=== PATIENT | female | born 1960 | race Caucasian/White ===

== ENCOUNTER 2020-06-01 14:43 | Inpatient (IN) | payer MEDICARE, OTHER ==
--- NOTE | 2020-06-01 15:14 | ED ---
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 Patient states she was diagnosed with Covid 10 days ago at [facility].patient states about 2 days ago she has developed a fev er 103F and was started on Tylenol when necessary. Patient also believes she was taken azithromycin but is not completely sure. Patient reports today she has developed some shortness of breath but did not think much of it. States the staff was more concerned for her so they called an ambulance to bring her for an evaluation. Patient does report feeling slightly wheezy although not significant. She denies any chest pain, back pain, abdominal pain, nausea, vomiting, diarrhea. Denies any URI-like symptoms. Denies any lightheadedness, dizzinessor headache.not a smoker nor history of asthma. - Related Data Allergies Allergy/AdvReac Type Severity Reaction Status Date / Time No Known Allergies Allergy Verified 06/01/20 14:56 Review of Systems ROS Statement: Those systems with pertinent positive or pertinent negative responses have been documented in the HPI. ROS Other: All systems not noted in ROS Statement are negative. Past Medical History Past Medical History: CVA/TIA Additional Past Medical History / Comment(s): brain aneursym History of Any Multi-Drug Resistant Organisms: MRSA Date of last positivie culture/infection: 06/18/16 MDRO Source:: SCALP Past Surgical History: No Surgical Hx Reported Past Psychological History: No Psychological Hx Reported Smoking Status: Former smoker Past Alcohol Use History: None Reported, Unable to Obtain General Exam Limitations: no limitations General appearance: alert, in no apparent distress, obese Head exam: Present: atraumatic, normocephalic, normal inspection Eye exam: Present: normal appearance, PERRL, EOMI Pupils: Present: normal accommodation ENT exam: Present: normal exam, normal oropharynx, mucous membranes moist, TM's normal bilaterally, normal external ear exam Neck exam: Present: normal inspection, full ROM Respiratory exam: Present: normal lung sounds bilaterally, wheezes (faint wheezing bilaterally). Absent: respiratory distress, chest wall tenderness, accessory muscle use Cardiovascular Exam: Present: regular rate, normal rhythm, normal heart sounds GI/Abdominal exam: Present: soft. Absent: distended, tenderness, guarding, rebound Extremities exam: Present: normal inspection, full ROM, normal capillary refill, other (palpable DP and PT bilaterally.). Absent: tenderness, joint swelling Back exam: Present: normal inspection, full ROM. Absent: tenderness, CVA tenderness (R), CVA tenderness (L) Neurological exam: Present: alert, oriented X3 Psychiatric exam: Present: normal affect, normal mood Skin exam: Present: warm, dry, intact, normal color Course Vital Signs 06/01/20 06/01/20 06/01/20 14:56 15:08 16:00 Temperature 98.8 F Pulse Rate 105 H 89 Respiratory 20 20 Rate Blood Pressure 118/83 137/57 O2 Sat by Pulse 85 L 90 L 90 L Oximetry 06/01/20 16:55 Temperature Pulse Rate 85 Respiratory 18 Rate Blood Pressure 131/59 O2 Sat by Pulse 95 Oximetry - Reevaluation(s) Reevaluation #1: 06/01/20 17:21 medical records reviewed Medical Decision Making - Medical Decision Making 60-year-old female with history of CVA and 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 On initial evaluation, patient has an oxygen saturation in the mid 80s on room air. Patient was started on 4 L of nasal cannula. Oxygen saturation improved to the mid 90s. CBC reveals leukocytosis of 13. Chest x-ray does reveal infiltrates. Coags within normal limits. Elevated d-dimer. CT angios the chest obtained reveals no signs of a PE but there is ground glass opacity bilaterally likely secondary to Covid.elevated BUN is 21. Patient was given 500 mL of IV fluids. Glucose 285. Patient will be started on a consistent carbohydrate diet. Elevated CRP and LDH.patient does not have any chest pain at this time. Patient will be admitted for further medical management.patient will be started on 6 mg of IV dexamethasone. 40 mg subcu Lovenox for DVT prophylaxis. Case discussed with Dr. Ley Admitting physician is pulmonology consulted - Lab Data Result diagrams: 06/01/20 15:06 06/01/20 15:06 Lab Results 02/08/1606/01/20 06/01/20 Range/Units 15:06 15:06 15:06 WBC 13.0 H (3.8-10.6) k/uL RBC 4.47 (3.80-5.40) m/uL Hgb 13.1 (11.4-16.0) gm/dL Hct 40.8 (34.0-46.0) % MCV 91.2 (80.0-100.0) fL MCH 29.4 (25.0-35.0) pg MCHC 32.2 (31.0-37.0) g/dL RDW 14.4 (11.5-15.5) % Plt Count 265 (150-450) k/uL MPV 8.8 Neutrophils % 94 % Lymphocytes % 3 % Monocytes % 2 % Eosinophils % 0 % Basophils % 0 % Neutrophils # 12.2 H (1.3-7.7) k/uL Lymphocytes # 0.4 L (1.0-4.8) k/uL Monocytes # 0.3 (0-1.0) k/uL Eosinophils # 0.0 (0-0.7) k/uL Basophils # 0.0 (0-0.2) k/uL PT 10.0 (9.0-12.0) sec INR 0.9 (<1.2) APTT 20.4 L (22.0-30.0) sec D-Dimer 1.07 H (<0.60) mg/L FEU Sodium 134 L (137-145) mmol/L Potassium 4.0 (3.5-5.1) mmol/L Chloride 103 (98-107) mmol/L Carbon Dioxide 24 (22-30) mmol/L Anion Gap 7 mmol/L BUN 21 H (7-17) mg/dL Creatinine 0.87 (0.52-1.04) mg/dL Est GFR (CKD-EPI)AfAm 85 (>60 ml/min/1.73 sqM) Est GFR (CKD-EPI)NonAf 74 (>60 ml/min/1.73 sqM) Glucose 278 H (74-99) mg/dL Plasma Lactic Acid Jono (0.7-2.0) mmol/L Calcium 8.2 L (8.4-10.2) mg/dL Magnesium 2.4 H (1.6-2.3) mg/dL Total Bilirubin 0.8 (0.2-1.3) mg/dL AST 38 H (14-36) U/L ALT 29 (4-34) U/L Alkaline Phosphatase 119 (38-126) U/L Lactate Dehydrogenase 849 H (313-618) U/L C-Reactive Protein 242.5 H (<10.0) mg/L Total Protein 7.0 (6.3-8.2) g/dL Albumin 3.4 L (3.5-5.0) g/dL 06/01/20 Range/Units 15:06 WBC (3.8-10.6) k/uL RBC (3.80-5.40) m/uL Hgb (11.4-16.0) gm/dL Hct (34.0-46.0) % MCV (80.0-100.0) fL MCH (25.0-35.0) pg MCHC (31.0-37.0) g/dL RDW (11.5-15.5) % Plt Count (150-450) k/uL MPV Neutrophils % % Lymphocytes % % Monocytes % % Eosinophils % % Basophils % % Neutrophils # (1.3-7.7) k/uL Lymphocytes # (1.0-4.8) k/uL Monocytes # (0-1.0) k/uL Eosinophils # (0-0.7) k/uL Basophils # (0-0.2) k/uL PT (9.0-12.0) sec INR (<1.2) APTT (22.0-30.0) sec D-Dimer (<0.60) mg/L FEU Sodium (137-145) mmol/L Potassium (3.5-5.1) mmol/L Chloride (98-107) mmol/L Carbon Dioxide (22-30) mmol/L Anion Gap mmol/L BUN (7-17) mg/dL Creatinine (0.52-1.04) mg/dL Est GFR (CKD-EPI)AfAm (>60 ml/min/1.73 sqM) Est GFR (CKD-EPI)NonAf (>60 ml/min/1.73 sqM) Glucose (74-99) mg/dL Plasma Lactic Acid Jono 2.0 (0.7-2.0) mmol/L Calcium (8.4-10.2) mg/dL Magnesium (1.6-2.3) mg/dL Total Bilirubin (0.2-1.3) mg/dL AST (14-36) U/L ALT (4-34) U/L Alkaline Phosphatase (38-126) U/L Lactate Dehydrogenase (313-618) U/L C-Reactive Protein (<10.0) mg/L Total Protein (6.3-8.2) g/dL Albumin (3.5-5.0) g/dL - EKG Data EKG Comments: sinus rhythm with short VA interval Ventricular rate 98, VA 110, QRS 86, QTC 428 Disposition Clinical Impression: Pneumonia due to COVID-19 virus, COVID-19 Disposition: ADMITTED IP TO THIS HOSP Condition: Stable Is patient prescribed a controlled substance at d/c from ED?: No Referrals: Basil Cunningham DO [Primary Care Provider] - 1-2 days Time of Disposition: 17:22
[2020-06-01 15:17] LABS: Basophils % (A) 0 %; Eosinophils % (A) 0 %; HCT 40.8 % (34.0-46.0); HGB 13.1 gm/dL (11.4-16.0); Lymphocytes # (A) 0.4 k/uL (1.0-4.8); Lymphocytes % (A) 3 %; MCH 29.4 pg (25.0-35.0); MCHC 32.2 g/dL (31.0-37.0); MCV 91.2 fL (80.0-100.0); Mean Platelet Volume 8.8; Monocytes # (A) 0.3 k/uL (0-1.0); Monocytes % (A) 2 %; Neutrophils # (A) 12.2 k/uL (1.3-7.7); Neutrophils % (A) 94 %; Platelet Count 265 k/uL (150-450); RBC 4.47 m/uL (3.80-5.40); RDW 14.4 % (11.5-15.5)
[2020-06-01 15:29] LABS: Albumin 3.4 g/dL (3.5-5.0); Calcium 8.2 mg/dL (8.4-10.2); Magnesium 2.4 mg/dL (1.6-2.3); Total Bilirubin 0.8 mg/dL (0.2-1.3)
[2020-06-01 15:43] LABS: INR 0.9 (<1.2)
[2020-06-01 15:44] LABS: Partial Thromboplastin Time 20.4 sec (22.0-30.0)
[2020-06-01 15:45] LABS: C Reactive Protein 242.5 mg/L (<10.0)
--- NOTE | 2020-06-01 15:46 | XR ---
EXAMINATION TYPE: XR chest 1V portable DATE OF EXAM: 06/01/2020 COMPARISON: NONE HISTORY: Cough and congestion. TECHNIQUE: Single AP portable frontal upright view of the chest is obtained. FINDINGS: There is background reticular nodular opacities with additional multifocal opacities bilat erally. Low lung volumes. No pleural effusion or pneumothorax. The cardiac silhouette size is within normal limits. The osseous structures are intact. IMPRESSION: Bilateral multifocal acute infiltrates suspicious for covid 19 infection. Low lung volum es noted. Old outside x-ray would be beneficial to assess for underlying chronic parenchymal changes.
[2020-06-01 15:53] LABS: D-Dimer 1.07 mg/L FEU (<0.60)
[2020-06-01] MEDS ORDERED: DEXAMETHASONE SOD PHOSPHATE 10 MG/ML 1 ML VIAL IV STA (15:54)
--- NOTE | 2020-06-01 16:57 | CT ---
EXAMINATION TYPE: CT chest angio for PE DATE OF EXAM: 06/01/2020 COMPARISON: None HISTORY: SOB, Covid+, elevated d-dimer CT DLP: 577.4 mGycm Automated exposure control for dose reduction was used. CONTRAST: Performed with IV Contrast, patient injected with 100 mL of Isovue 370. There are 3-D post processed images. FINDINGS: There is moderate patchy groundglass interstitial infiltrates in both lung sherman. There is no pulmon annika consolidation. There is no evidence of a pulmonary mass. There is large pericardial fat pad. Hear t size is normal. There is no pericardial effusion. There are no hilar masses. There is no mediastinal adenopathy. Thoracic aorta shows no aneurysm or di ssection. There is normal contrast opacification of the pulmonary arteries. There are no filling defects. The thoracic spine is intact. There is no compression fracture. Upper abdominal soft tissues are inta ct. IMPRESSION: No evidence of pulmonary embolism. Groundglass patchy pulmonary interstitial infiltrates consistent with pneumonia.
[2020-06-01] MEDS ORDERED: ENOXAPARIN 40 MG/0.4 ML SYRINGE SQ STA (17:17)
[2020-06-01] MEDS ORDERED: traMADol 50 MG TAB PO PRN (17:23)
[2020-06-01] MEDS ORDERED: MORPHINE SULFATE 4 MG/ML SYRINGE IV PRN (17:23)
[2020-06-01] MEDS ORDERED: ACETAMINOPHEN TAB 325 MG TAB PO PRN ×2 (17:23→21:28)
[2020-06-01] MEDS ORDERED: LORazepam 2 MG/ML INJ IV PRN (17:23)
[2020-06-01] MEDS ORDERED: ONDANSETRON 4 MG/2 ML VIAL IVP PRN (17:23)
[2020-06-01] MEDS ORDERED: HYDROmorphone 0.5 MG/0.5 ML SYRINGE IVP PRN (17:23)
[2020-06-01] MEDS ORDERED: NALOXONE 0.4 MG/ML 1 ML VIAL IV PRN (17:23)
[2020-06-01] MEDS ORDERED: HYDROcodone/APAP 5-325MG 1 EACH TAB PO PRN (17:23)
[2020-06-01] MEDS ORDERED: LOPERAMIDE 2 MG CAP PO PRN (21:28)
[2020-06-01] MEDS ORDERED: ONDANSETRON ODT 4 MG TAB PO PRN (21:28)
[2020-06-01] MEDS ORDERED: MAGNESIUM HYDROXIDE 2,400 MG/10 ML CUP PO PRN (21:28)
[2020-06-01] MEDS ORDERED: bisacodyL 10 MG SUPP RECTAL PRN (21:28)
[2020-06-01] MEDS ORDERED: NON FORMULARY DRUG (Menthol [Biofreeze] 89 ML Gel..Ml.) TOPICAL PRN (21:28)
[2020-06-01] MEDS: SODIUM CHLORIDE 0.9% 1,000 ML IV SCH (22:39)
[2020-06-01] MEDS: MORPHINE SULFATE ER 15 MG TABLET PO SCH (23:13)
[2020-06-01] MEDS: guaiFENesin 600 MG TABLET.ER PO SCH (23:13)
[2020-06-01] MEDS: levETIRAcetam 500 MG TAB PO SCH (23:13)
[2020-06-01] MEDS: MELATONIN 3 MG TABLET PO SCH (23:14)
[2020-06-01] MEDS: BACLOFEN 10 MG TAB PO SCH (23:14)
[2020-06-02 06:37] LABS: Ferritin 440.6 ng/mL (10.0-291.0)
[2020-06-02] MEDS: SODIUM CHLORIDE 0.9% 1,000 ML IV SCH ×2 (06:52→20:58)
[2020-06-02] MEDS: CYANOCOBALAMIN 500 MCG TAB PO SCH (07:49)
[2020-06-02] MEDS: lisinopriL 10 MG TAB PO SCH (07:49)
[2020-06-02] MEDS: MULTIVITAMINS, THERA 1 EACH TAB PO SCH (07:49)
[2020-06-02] MEDS: DULoxetine HCL 20 MG CAPSULE.DR PO SCH (07:49)
[2020-06-02] MEDS: levETIRAcetam 500 MG TAB PO SCH ×2 (07:49→21:22)
[2020-06-02] MEDS: ASCORBIC ACID 500 MG TAB PO SCH (07:49)
[2020-06-02] MEDS: guaiFENesin 600 MG TABLET.ER PO SCH ×2 (07:49→21:22)
[2020-06-02] MEDS: ZINC SULFATE 220 MG CAP PO SCH (07:49)
[2020-06-02] MEDS: CHOLECALCIFEROL 25 MCG (1000 IU) TABLET PO SCH (07:49)
[2020-06-02] MEDS: MORPHINE SULFATE ER 15 MG TABLET PO SCH ×2 (07:50→21:21)
[2020-06-02] MEDS ORDERED: IPRATROPIUM-ALBUTEROL 3 ML NEB INHALATION SCH (08:00)
[2020-06-02] MEDS: DEXAMETHASONE SOD PHOSPHATE 10 MG/ML 1 ML VIAL IV SCH (08:53)
[2020-06-02] MEDS ORDERED: DEXAMETHASONE SOD PHOSPHATE 10 MG/ML 1 ML VIAL IV SCH (09:00)
[2020-06-02] MEDS ORDERED: NA PHOS,M-B/NA PHOS,DI-BA 133 ML ENEMA RECTAL PRN (09:00)
--- NOTE | 2020-06-02 13:26 | P.CNPUL ---
History of Present Illness Consult date: 06/02/20 Requesting physician: Marcelo Chaves Reason for consult: dyspnea, cough, hypoxemia, pneumonia, abnormal CXR/CT Chief complaint: Shortness of breath. History of present illness: 60-year-old female, with a history of previous stroke, a couple years ago, and left-sided paralysis, who resides at [facility], presents with complaints of increasing shortness of breath, cough, chest tightness, and fever. She apparently was diagnosed as having COVID 19 infection 10 days ago. She tells us that many residents at the [facility] test positive for coronavirus infection. Because of the high fever, and the increasing shortness of breath, the staff at the [facility] called EMS who transported the patient into the hospital to be evaluated. After evaluation in the emergency room, it was determined that the patient should be admitted for COVID 19 pneumonitis, and acute hypoxemic respiratory failure. The patient was started on oxygen therapy, and albuterol inhaler, Decadron, vitamin C, vitamin D3, zinc, etc. 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 Labs include a white count of 13, hemoglobin 13.1, hematocrit of 40.8, platelet count 265,000. PT and INR were normal. PTT was 20.4, d-dimer was 1.07. Sodium was 134, potassium 4, chlorides 103, CO2 24, anion gap 7, BUN 21, and creatinine 0.87. Ferritin was 441, AST was 38, LDH was 849, C-reactive protein was 243. Her calcitonin level was 0.59. Chest x-ray and computed tomography scan, are consistent with COVID 19 pneumonia. Review of Systems REVIEW OF SYSTEMS: CONSTITUTIONAL: Fever NEUROLOGIC: [ Negative.] HEENT: [ Negative.] CARDIAC: [Negative.] PULMONARY: Shortness of breath, chest congestion, chest tightness, and cough GI: [Negative.] : [Negative.] RHEUMATOLOGIC: [ Negative.] IMMUNOLOGIC: [ Negative.] ENDOCRINE: [Negative. ] DERMATOLOGIC: [Negative.] Past Medical History Past Medical History: CVA/TIA Additional Past Medical History / Comment(s): brain aneursym History of Any Multi-Drug Resistant Organisms: MRSA Date of last positivie culture/infection: 2/21/17 MDRO Source:: SCALP Past Surgical History: Hysterectomy Additional Past Anesthesia/Blood Transfusion Reaction / Comment(s): too sleepy Past Psychological History: No Psychological Hx Reported Smoking Status: Former smoker Past Alcohol Use History: None Reported, Unable to Obtain Past Drug Use History: None Reported Medications and Allergies Home Medications Medication Instructions Recorded Confirmed Type Acetaminophen Tab [Tylenol] 650 mg PO Q4H PRN 06/01/20 06/01/20 History Albuterol Sulfate [Ventolin HFA] 2 puff INHALATION RT-Q4H PRN 06/01/20 06/01/20 History Ascorbic Acid [Vitamin C] 1,000 mg PO DAILY@79906/01/20 06/01/20 History Baclofen 10 mg PO HS@199906/01/20 06/01/20 History Cholecalciferol [Vitamin D3 (25 50 mcg PO DAILY@79906/01/20 06/01/20 History Mcg = 1000 Iu)] DULoxetine HCL [Cymbalta] 20 mg PO DAILY@79906/01/20 06/01/20 History Ipratropium-Albuterol Nebulize 3 ml INHALATION RT-TID 06/01/20 06/01/20 History [Duoneb 0.5 mg-3 mg/3 ml Soln] Levofloxacin [Levaquin] 500 mg PO DAILY@169906/01/20 06/01/20 History Loperamide HCl [Imodium A-D] 2 - 4 mg PO TID PRN MDD 4TABS 06/01/20 06/01/20 History Magnesium Hydroxide [Milk of 7,200 mg PO DAILY PRN 06/01/20 06/01/20 History Magnesia Concentrate] Melatonin 3 mg PO HS@209906/01/20 06/01/20 History Menthol [Biofreeze] 1 applic TOPICAL DAILY PRN 06/01/20 06/01/20 History Morphine Sulfate [Morphine Sulfate 15 mg PO BID@799,199906/01/20 06/01/20 His tory ER] Multivitamins, Thera [Multivitamin 1 tab PO DAILY@79906/01/20 06/01/20 History (formulary)] Na Phos,M-B/Na Phos,Di-Ba [Fleet 133 ml RECTAL DAILY PRN 06/01/20 06/01/20 History Adult] Ondansetron Odt [Zofran ODT] 4 mg PO Q8H PRN 06/01/20 06/01/20 History Vitamin B-12 250 Mcg 250 mcg PO DAILY@0800 06/01/20 06/01/20 History Zinc Sulfate 220 mg PO DAILY@0800 06/01/20 06/01/20 History bisacodyL [Dulcolax] 10 mg RECTAL DAILY PRN 06/01/20 06/01/20 History guaiFENesin [Mucinex] 600 mg PO BID@0800,209906/01/20 06/01/20 History levETIRAcetam [Keppra] 500 mg PO BID@0800,199906/01/20 06/01/20 History lisinopriL [Zestril] 10 mg PO DAILY@0800 06/01/20 06/01/20 History Allergies Allergy/AdvReac Type Severity Reaction Status Date / Time No Known Allergies Allergy Verified 06/01/20 17:36 Physical Exam Osteopathic Statement: *. No significant issues noted on an osteopathic structural exam other than those noted in the History and Physical/Consult. Vitals: Vital Signs Temp Pulse Pulse Resp BP BP Pulse Ox 06/02/20 12:08 97.8 F 66 16 115/70 90 L 06/02/20 05:32 98.7 F 70 19 119/68 92 L 06/02/20 02:05 98.8 F 85 17 119/66 91 L 06/01/20 21:55 98.6 F 76 16 153/72 91 L 06/01/20 20:40 76 16 06/01/20 20:10 98.6 F 86 20 140/64 94 L 06/01/20 19:15 84 18 146/86 93 L 06/01/20 18:00 84 20 139/54 92 L 06/01/20 16:55 85 18 131/59 95 06/01/20 16:00 89 20 137/57 90 L 06/01/20 15:08 90 L 06/01/20 14:56 98.8 F 105 H 20 118/83 85 L Intake and Output 06/01/20 06/02/20 06/02/20 22:59 06:59 14:59 Other: # Voids 0 0 Weight 116.573 kg No acute distress, oriented 3. Nasal O2 in place. HEENT examination is grossly unremarkable. Mucous membranes are moist. No oral lesions. Neck supple. Full range of motion. No adenopathy thyromegaly or neck vein distention. Cardiovascular examination reveals regular rhythm rate. S1-S2 normal. No S3 or S4. No discernible murmur noted. Heart rate 66 bpm. Lungs reveal diminished bilateral breath sounds. The patient does not take deep breaths. No distinct adventitious lung sounds were noted. Abdomen soft bowel sounds are heard. No masses or tenderness. Extremities are intact. No cyanosis clubbing or edema. Skin is without rash or lesion. Neurologic examination reveals left-sided weakness with flexion contracture of the left hand. Results - Laboratory Findings CBC and BMP: 06/01/20 15:06 06/01/20 15:06 PT/INR, D-dimer PT 10.0 sec (9.0-12.0) 06/01/20 15:06 INR 0.9 (<1.2) 06/01/20 15:06 D-Dimer 1.07 mg/L FEU (<0.60) H 06/01/20 15:06 Abnormal lab findings: Abnormal Labs 06/01/20 06/01/20 06/01/20 15:06 15:06 15:06 WBC 13.0 H Neutrophils # 12.2 H Lymphocytes # 0.4 L APTT 20.4 L D-Dimer 1.07 H Sodium 134 L BUN 21 H Glucose 278 H Calcium 8.2 L Magnesium 2.4 H Ferritin 440.6 H AST 38 H Lactate Dehydrogenase 849 H C-Reactive Protein 242.5 H Albumin 3.4 L Procalcitonin 06/01/20 15:06 WBC Neutrophils # Lymphocytes # APTT D-Dimer Sodium BUN Glucose Calcium Magnesium Ferritin AST Lactate Dehydrogenase C-Reactive Protein Albumin Procalcitonin 0.59 H - Diagnostic Findings Chest x-ray: image reviewed CT scan - chest: image reviewed Assessment and Plan Assessment: COVID 19 pneumonia/pneumonitis, with acute hypoxemic respiratory failure. History of ruptured aneurysm, with left-sided weakness/paralysis. History of hypertension. Obesity. Plan: Plan dated 06/01/2020. The patient is beyond the remdesivir window. She is treated with vitamin C, vitamin D3, and zinc. In addition, she is getting Decadron, 6 mg daily. Also, we provide her with an albuterol inhaler. Also, she is on oxygen therapy at 4 L. Saturations are in the low 90s. Recommend deep breathing, coughing, clearing secretions. In addition, we recommend there is positions including vergara pine, prone, right side down, and left side down. This is difficult for her because of her left-sided paralysis/weakness. Also, she is on Mucinex. Also, she was placed on Levaquin by her primary care provider. Additional recommendations and suggestions are forthcoming. We'll continue to follow and make recommendations where appropriate. Time with Patient: Greater than 30
[2020-06-02] MEDS: ALBUTEROL HFA INHALER INHALATION PRN ×2 (15:38→19:57)
[2020-06-02] MEDS: LEVOFLOXACIN 500 MG TAB PO SCH (17:30)
[2020-06-02] MEDS: BACLOFEN 10 MG TAB PO SCH (21:21)
[2020-06-02] MEDS: MELATONIN 3 MG TABLET PO SCH (21:22)
--- NOTE | 2020-06-02 21:30 | P.HPIM ---
History of Present Illness H&P Date: 06/02/20 Chief Complaint: Fever History of presenting complaint: This is a pleasant 60-year-old patient follows a Dr. Cunningham at the [facility]. Blood the EMS report: They've informed by the [facility] that that for several days patient has been needing increasing amount of supplemental oxygen. Patient's pulse ox and dropped down to 83% on a nonrebreather 5 L/m. Apparently patient was diagnosed with COVID 19/10 days ago. Started off with fever about 2 days ago. She has a cough. Slightly congested. Appetite is okay. No headaches. Some body aches. Chronic stable medical conditions include hypertension, seizure disorder, GERD, chronic pain, hyperlipidemia. Patient has left hemiparesis. History of brain aneurysm repair. Has no use of the left arm. Some movement of the left leg. Otherwise patient is able to communicate. Review of systems: GEN.: Fever] EYES: None HEENT: None NECK: None RESPIRATORY: As above CARDIOVASCULAR: None GASTROINTESTINAL: None GENITOURINARY: Patient doesn't a brief MUSCULOSKELETAL: None LYMPHATICS: None HEMATOLOGICAL: None PSYCHIATRY: None NEUROLOGICAL: Flaccid left arm and some weakness of the left leg Past medical history to include: Left hemiparesis, hypertension, epilepsy, GERD, chronic pain syndrome, hyperlipidemia,, vein aneurysm repair. Left arm flaccid and some weakness in the left leg. Social history: Did smoke in the past. No alcohol. Currently at the [facility]. Family history: Reviewed, noncontributory to presentation Physical examination: VITAL SIGNS: 98.8, 105, 20, 108/83, 85% on room air-upon presentation GENERAL: BMI 50.2, laying in bed, awake a bit tired. EYES: Pupils equal. Conjunctiva normal. HEENT: External appearance of nose and ears normal, oral cavity grossly normal. NECK: JVD not raised; masses not palpable. HEART: First and second heart sounds are normal; no edema. LUNGS:[ Respiratory rate increased, diminished breath sounds. ABDOMEN: Soft, nontender, liver spleen not palpable, no masses palpable. PSYCH: Alert and oriented x3; mood and affect normal. NEUROLOGICAL: [Cranial nerves grossly intact; no facial asymmetry, power in the left arm 0/5, left leg 2/5 LYMPHATICS: No lymph nodes palpable in the axilla and neck INVESTIGATIONS, reviewed in the clinical context: White count 13 hemoglobin 13.1 platelets 265 decreased lymphocytes at 0.4 d- dimer 1.07 sodium 134 potassium 4 creatinine 0.87 glucose 278 CRP to 42 pro calcitonin 0.59 EKG tracing personally reviewed by me-normal sinus rhythm Chest [id number] infiltrates Computed tomography scan chest angina for PE protocol: No evidence of PE. Groundglass patchy pulmonary interstitial infiltrates. Assessment and plan: -Bilateral COVID 19 pneumonia diagnosed about 10 days ago. Patient developed a fever 2 days ago. Associated hypoxia. Patient started IV Decadron, supplements including zinc, vitamin C, vitamin D being added. -Possible gram-negative secondary pneumonia-Levaquin added -Acute hypoxic respiratory failure from pneumonia-supplement oxygen, currently on 4 L -Chronic left hemiparesis with a flaccid left arm and particularly left lower extremity 2 x 5. -Essential hypertension-continue Zestril -Epilepsy disorder-continue Keppra -GERD stable -Chronic insomnia uses melatonin -Chronic pain syndrome continue on morphine sulfate -Morbid obesity BMI 50.2 -Chronic medical debility patient is pretty much nonambulatory Plan: Home medications resumed. Patient started on vitamin D3, IV Decadron 6 mg, Levaquin has been continued, pulmonary consulted. Follow d-dimer and CRP. Care was discussed with the patient. Questions answered. Expectation admin Hospital for more than 2 overnights. Past Medical History Past Medical History: CVA/TIA Additional Past Medical History / Comment(s): brain aneursym History of Any Multi-Drug Resistant Organisms: MRSA Date of last positivie culture/infection: 06/18/16 MDRO Source:: SCALP Past Surgical History: Hysterectomy Additional Past Anesthesia/Blood Transfusion Reaction / Comment(s): too sleepy Past Psychological History: No Psychological Hx Reported Smoking Status: Former smoker Past Alcohol Use History: None Reported, Unable to Obtain Past Drug Use History: None Reported Medications and Allergies Home Medications Medication Instructions Recorded Confirmed Type Acetaminophen Tab [Tylenol] 650 mg PO Q4H PRN 06/01/20 06/01/20 History Albuterol Sulfate [Ventolin HFA] 2 puff INHALATION RT-Q4H PRN 06/01/20 06/01/20 History Ascorbic Acid [Vitamin C] 1,000 mg PO DAILY@0800 06/01/20 06/01/20 History Baclofen 10 mg PO HS@199906/01/20 06/01/20 History Cholecalciferol [Vitamin D3 (25 50 mcg PO DAILY@0800 06/01/20 06/01/20 History Mcg = 1000 Iu)] DULoxetine HCL [Cymbalta] 20 mg PO DAILY@0800 06/01/20 06/01/20 History Ipratropium-Albuterol Nebulize 3 ml INHALATION RT-TID 06/01/20 06/01/20 History [Duoneb 0.5 mg-3 mg/3 ml Soln] Levofloxacin [Levaquin] 500 mg PO DAILY@17006/01/20 06/01/20 History Loperamide HCl [Imodium A-D] 2 - 4 mg PO TID PRN MDD 4TABS 06/01/20 06/01/20 History Magnesium Hydroxide [Milk of 7,200 mg PO DAILY PRN 06/01/20 06/01/20 History Magnesia Concentrate] Melatonin 3 mg PO HS@209906/01/20 06/01/20 History Menthol [Biofreeze] 1 applic TOPICAL DAILY PRN 06/01/20 06/01/20 History Morphine Sulfate [Morphine Sulfate 15 mg PO BID@0800,199906/01/20 06/01/20 H istory ER] Multivitamins, Thera [Multivitamin 1 tab PO DAILY@0806/01/20 06/01/20 History (formulary)] Na Phos,M-B/Na Phos,Di-Ba [Fleet 133 ml RECTAL DAILY PRN 06/01/20 06/01/20 History Adult] Ondansetron Odt [Zofran ODT] 4 mg PO Q8H PRN 06/01/20 06/01/20 History Vitamin B-12 250 Mcg 250 mcg PO DAILY@0800 06/01/20 06/01/20 History Zinc Sulfate 220 mg PO DAILY@0806/01/20 06/01/20 History bisacodyL [Dulcolax] 10 mg RECTAL DAILY PRN 06/01/20 06/01/20 History guaiFENesin [Mucinex] 600 mg PO BID@0800,209906/01/20 06/01/20 History levETIRAcetam [Keppra] 500 mg PO BID@0800,199906/01/20 06/01/20 History lisinopriL [Zestril] 10 mg PO DAILY@0800 06/01/20 06/01/20 History Allergies Allergy/AdvReac Type Severity Reaction Status Date / Time No Known Allergies Allergy Verified 06/01/20 17:36 Physical Exam Vitals: Vital Signs Temp Pulse Pulse Resp BP BP Pulse Ox 06/02/20 05:32 98.7 F 70 19 119/68 92 L 06/02/20 02:05 98.8 F 85 17 119/66 91 L 06/01/20 21:55 98.6 F 76 16 153/72 91 L 06/01/20 20:40 76 16 06/01/20 20:10 98.6 F 86 20 140/64 94 L 06/01/20 19:15 84 18 146/86 93 L 06/01/20 18:00 84 20 139/54 92 L 06/01/20 16:55 85 18 131/59 95 06/01/20 16:00 89 20 137/57 90 L 06/01/20 15:08 90 L 06/01/20 14:56 98.8 F 105 H 20 118/83 85 L Intake and Output 06/01/20 06/02/20 06/02/20 22:59 06:59 14:59 Other: # Voids 0 Weight 116.573 kg Results CBC & Chem 7: 06/01/20 15:06 06/01/20 15:06 Labs: Abnormal Lab Results - Last 24 Hours (Table) 06/01/20 06/01/20 06/01/20 Range/Units 15:06 15:06 15:06 WBC 13.0 H (3.8-10.6) k/uL Neutrophils # 12.2 H (1.3-7.7) k/uL Lymphocytes # 0.4 L (1.0-4.8) k/uL APTT 20.4 L (22.0-30.0) sec D-Dimer 1.07 H (<0.60) mg/L FEU Sodium 134 L (137-145) mmol/L BUN 21 H (7-17) mg/dL Glucose 278 H (74-99) mg/dL Calcium 8.2 L (8.4-10.2) mg/dL Magnesium 2.4 H (1.6-2.3) mg/dL Ferritin 440.6 H (10.0-291.0) ng/mL AST 38 H (14-36) U/L Lactate Dehydrogenase 849 H (313-618) U/L C-Reactive Protein 242.5 H (<10.0) mg/L Albumin 3.4 L (3.5-5.0) g/dL Procalcitonin (0.02-0.09) ng/mL 06/01/20 Range/Units 15:06 WBC (3.8-10.6) k/uL Neutrophils # (1.3-7.7) k/uL Lymphocytes # (1.0-4.8) k/uL APTT (22.0-30.0) sec D-Dimer (<0.60) mg/L FEU Sodium (137-145) mmol/L BUN (7-17) mg/dL Glucose (74-99) mg/dL Calcium (8.4-10.2) mg/dL Magnesium (1.6-2.3) mg/dL Ferritin (10.0-291.0) ng/mL AST (14-36) U/L Lactate Dehydrogenase (313-618) U/L C-Reactive Protein (<10.0) mg/L Albumin (3.5-5.0) g/dL Procalcitonin 0.59 H (0.02-0.09) ng/mL Thrombosis Risk Factor Assmnt - Choose All That Apply Each Factor Represents 1 point: Age 41-60 years, Medical pt on bed rest, Obesity (BMI >25), Swollen legs (current) Thrombosis Risk Factor Assessment Total Risk Factor Score: 4 Thrombosis Risk Factor Assessment Level: Moderate Risk
[2020-06-02] MEDS ORDERED: VANCOMYCIN IV PER PHARMACY 1 EACH MISC MISCELLANE PRN (21:31)
[2020-06-02] MEDS ORDERED: VANCOMYCIN 2,000 MG in SODIUM CHLORIDE 0.9% 500 ML 500 ML IVPB ONE (22:30)
[2020-06-03 06:54] LABS: Glucose,Whole Blood 162 mg/dL (75-99)
[2020-06-03 07:52] LABS: African American GFR (CKD) >90 (>60 ml/min/1.73 sqM); Non-African American GFR(CKD) >90 (>60 ml/min/1.73 sqM)
[2020-06-03] MEDS: ALBUTEROL HFA INHALER INHALATION PRN ×4 (08:30→19:42)
[2020-06-03] MEDS: ASCORBIC ACID 500 MG TAB PO SCH (08:41)
[2020-06-03] MEDS: MULTIVITAMINS, THERA 1 EACH TAB PO SCH (08:41)
[2020-06-03] MEDS: guaiFENesin 600 MG TABLET.ER PO SCH ×2 (08:42→20:12)
[2020-06-03] MEDS: CYANOCOBALAMIN 500 MCG TAB PO SCH (08:42)
[2020-06-03] MEDS: CHOLECALCIFEROL 25 MCG (1000 IU) TABLET PO SCH (08:42)
[2020-06-03] MEDS: levETIRAcetam 500 MG TAB PO SCH ×2 (08:42→16:27)
[2020-06-03] MEDS: ZINC SULFATE 220 MG CAP PO SCH (08:42)
[2020-06-03] MEDS: MORPHINE SULFATE ER 15 MG TABLET PO SCH ×2 (08:42→20:13)
[2020-06-03] MEDS: lisinopriL 10 MG TAB PO SCH (08:42)
[2020-06-03] MEDS: DULoxetine HCL 20 MG CAPSULE.DR PO SCH (08:42)
[2020-06-03] MEDS: DEXAMETHASONE SOD PHOSPHATE 10 MG/ML 1 ML VIAL IV SCH (08:43)
[2020-06-03] MEDS: SODIUM CHLORIDE 0.9% 1,000 ML IV SCH ×2 (08:43→21:32)
--- NOTE | 2020-06-03 13:33 | P.PN ---
Subjective Progress Note Date: 06/03/20 Principal diagnosis: CoVID 19 pneumonia 60-year-old female, with a history of previous stroke, a couple years ago, and left-sided paralysis, who resides at [facility], presents with complaints of increasing shortness of breath, cough, chest tightness, and fever. She apparently was diagnosed as having COVID 19 infection 10 days ago. She tells us that many residents at the [facility] test positive for coronavirus infection. Because of the high fever, and the increasing shortness of breath, the staff at the [facility] called EMS who transported the patient into the hospital to be evaluated. After evaluation in the emergency room, it was determined that the patient should be admitted for COVID 19 pneumonitis, and acute hypoxemic respiratory failure. The patient was started on oxygen therapy, and albuterol inhaler, Decadron, vitamin C, vitamin D3, zinc, etc. 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 Labs include a white count of 13, hemoglobin 13.1, hematocrit of 40.8, platelet count 265,000. PT and INR were normal. PTT was 20.4, d-dimer was 1.07. Sodium was 134, potassium 4, chlorides 103, CO2 24, anion gap 7, BUN 21, and creatinine 0.87. Ferritin was 441, AST was 38, LDH was 849, C-reactive protein was 243. Her calcitonin level was 0.59. Chest x-ray and computed tomography scan, are consistent with COVID 19 pneumonia. The patient is seen today 06/03/2020 in follow-up on the regular medical floor. She is resting comfortably in bed. Awake and alert in no acute distress. She denies any worsening shortness of breath, cough or congestion. Maintaining O2 saturations in the high 80s low 90s on 5 L/m per nasal cannula. She's afebrile. Hemodynamically stable. Preliminary blood culture reveals coag-negative staph. Creatinine 0.69. She's been initiated on vancomycin. Continued on bronchodilators, vitamin supplements, Decadron, Levaquin. Objective - Vital Signs Vital signs: Vital Signs Temp 97.5 F L 06/03/20 09:31 Pulse 67 06/03/20 09:31 Resp 17 06/03/20 09:31 BP 124/75 06/03/20 09:31 Pulse Ox 88 L 06/03/20 09:31 Intake & Output 06/02/20 06/03/20 06/03/20 18:59 06:59 18:59 Intake Total 900 1600 Balance 900 1600 Intake: Intake, IV Titration 1400 Amount Sodium Chloride 0.9% 1, 900 000 ml @ 75 mls/hr IV . [id number] [facility] Rx#:[id number] Vancomycin 2,000 mg In 500 Sodium Chloride 0.9% 500 ml 500 ml @ 167 mls/hr IVPB ONCE ONE Rx#: [id number] Oral 900 200 Other: # Voids 0 1 - Exam No acute distress, oriented 3. Pleasant 52-year-old female patient. Nasal O2 in place. HEENT examination is grossly unremarkable. Mucous membranes are moist. No oral lesions. Neck supple. Full range of motion. No adenopathy thyromegaly or neck vein distention. Cardiovascular examination reveals regular rhythm rate. S1-S2 normal. No S3 or S4. No discernible murmur noted. Heart rate 66 bpm. Lungs reveal diminished bilateral breath sounds. The patient does not take deep breaths. No distinct adventitious lung sounds were noted. Abdomen soft bowel sounds are heard. No masses or tenderness. Extremities are intact. No cyanosis clubbing or edema. Skin is without rash or lesion. Neurologic examination reveals left-sided weakness with flexion contracture of the left hand. - Labs CBC & Chem 7: 06/01/20 15:06 06/03/20 07:25 Labs: Abnormal Lab Results - Last 24 Hours (Table) 06/03/20 Range/Units 06:51 POC Glucose (mg/dL) 162 H (75-99) mg/dL Microbiology - Last 24 Hours (Table) 06/01/20 15:22 Blood Culture Gram Stain - Preliminary Blood Blood Culture - Preliminary Coagulase Negative Staph 06/01/20 15:22 Blood Culture - Final Blood 06/01/20 15:06 Blood Culture - Preliminary Blood No Growth after 24 hours Assessment and Plan Assessment: COVID 19 pneumonia/pneumonitis, with acute hypoxemic respiratory failure. History of ruptured aneurysm, with left-sided weakness/paralysis. History of hypertension. Obesity. Coag negative bacteremia, suspect contaminant Plan: The patient was seen and evaluated by Dr. Verdugo Continue the current treatment plan for CoVID 19 Hold off on anticoagulants for now Repeat inflammatory markers and chest x-ray in a.m. Plan is for return to [facility] I, the cosigning physician, performed a history & physical examination of the p atient. Lungs sounds with crackles in the bilateral posterior bases. Maintaining good O2 saturations in the 90s on 5 L/m per nasal cannula. I discussed the assessment and plan of care with my nurse practitioner, Dali Toledo. I attest to the above note as dictated by her.
[2020-06-03] MEDS: ENOXAPARIN 40 MG/0.4 ML SYRINGE SQ SCH ×3 (16:27→20:15)
[2020-06-03] MEDS: LEVOFLOXACIN 500 MG TAB PO SCH (16:48)
[2020-06-03] MEDS: BACLOFEN 10 MG TAB PO SCH (20:12)
[2020-06-03] MEDS: MELATONIN 3 MG TABLET PO SCH (20:13)
[2020-06-03 20:42] LABS: Glucose,Whole Blood 221 mg/dL (75-99)
--- NOTE | 2020-06-03 22:48 | P.PN ---
Progress Note - Text Progress Note Date: 06/03/20 Chief Complaint: Fever History of presenting complaint: This is a pleasant 60-year-old patient follows a Dr. Cunningham at the [facility]. Blood the EMS report: They've informed by the [facility] that that for several days patient has been needing increasing amount of supplemental oxygen. Patient's pulse ox and dropped down to 83% on a nonrebreather 5 L/m. Apparently patient was diagnosed with COVID 19/10 days ago. Started off with fever about 2 days ago. She has a cough. Slightly congested. Appetite is okay. No headaches. Some body aches. Chronic stable medical conditions include hypertension, seizure disorder, GERD, chronic pain, hyperlipidemia. Patient has left hemiparesis. History of brain aneurysm repair. Has no use of the left arm. Some movement of the left leg. Otherwise patient is able to communicate. Admitted with COVID 19 bilateral pneumonia, superimposed suspected gram-negative bacteria pneumonia, acute hypoxic respiratory failure. Patient started on Decadron, vitamin C vitamin D zinc supplement. Today-patient's pulse ox is 88% on 5 L. A bit congested. Eating about 75% of abuse. Cough. No fever Review of systems: Was done for constitutional, cardiovascular, GI, pulmonary. relevant finding as above Active Medications Acetaminophen (Acetaminophen Tab 325 Mg Tab) 650 mg PO Q4H PRN PRN Reason: Pain Hydrocodone Bitart/Acetaminophen (Hydrocodone/Apap 5-325mg 1 Each Tab) 1 each PO Q4HR PRN PRN Reason: Moderate Pain Albuterol Sulfate (Albuterol Hfa Inhaler) 2 puff INHALATION RT-Q4H PRN PRN Reason: Shortness Of Breath Last Admin: 06/03/20 19:42 Dose: 2 puff Documented by: Ascorbic Acid (Ascorbic Acid 500 Mg Tab) 1,000 mg PO DAILY@0800 [facility] Last Admin: 06/03/20 08:41 Dose: 1,000 mg Documented by: Baclofen (Baclofen 10 Mg Tab) 10 mg PO HS@2000 [facility] Last Admin: 06/03/20 20:12 Dose: 10 mg Documented by: Bisacodyl (Bisacodyl 10 Mg Supp) 10 mg RECTAL DAILY PRN PRN Reason: Constipation Cholecalciferol (Cholecalciferol 25 Mcg (1000 Iu) Tablet) 50 mcg PO DAILY@0800 [facility] Last Admin: 06/03/20 08:42 Dose: 50 mcg Documented by: Cyanocobalamin (Cyanocobalamin 500 Mcg Tab) 250 mcg PO DAILY@0800 [facility] Last Admin: 06/03/20 08:42 Dose: 250 mcg Documented by: Dexamethasone Sodium Phosphate (Dexamethasone Sod Phosphate 10 Mg/Ml 1 Ml Vial) 6 mg IV DAILY [facility] Last Admin: 06/03/20 08:43 Dose: 6 mg Documented by: Duloxetine HCl (Duloxetine Hcl 20 Mg Capsule.Dr) 20 mg PO DAILY@0800 [facility] Last Admin: 06/03/20 08:42 Dose: 20 mg Documented by: Enoxaparin Sodium (Enoxaparin 40 Mg/0.4 Ml Syringe) 40 mg SQ BID [facility] Last Admin: 06/03/20 20:15 Dose: Not Given Documented by: Guaifenesin (Guaifenesin 600 Mg Tablet.Er) 600 mg PO BID@0800,2100 [facility] Last Admin: 06/03/20 20:12 Dose: 600 mg Documented by: Hydromorphone HCl (Hydromorphone 0.5 Mg/0.5 Ml Syringe) 0.5 mg IVP Q3HR PRN PRN Reason: Moderate Pain Sodium Chloride (Saline 0.9%) 1,000 mls @ 75 mls/hr IV .[id number] [facility] Last Admin: 06/03/20 21:32 Dose: Not Given Documented by: Vancomycin HCl 2,250 mg/ (Sodium Chloride) 500 mls @ 167 mls/hr IVPB Q24H [facility] Last Admin: 06/03/20 22:14 Dose: 167 mls/hr Documented by: Levetiracetam (Levetiracetam 500 Mg Tab) 500 mg PO BID@0800,2000 [facility] Last Admin: 06/03/20 16:27 Dose: 500 mg Documented by: Levofloxacin (Levofloxacin 500 Mg Tab) 500 mg PO DAILY@1700 [facility] Last Admin: 06/03/20 16:48 Dose: 500 mg Documented by: Lisinopril (Lisinopril 10 Mg Tab) 10 mg PO DAILY@0800 [facility] Last Admin: 06/03/20 08:42 Dose: 10 mg Documented by: Loperamide HCl (Loperamide 2 Mg Cap) 2 mg PO TID PRN PRN Reason: Diarrhea Lorazepam (Lorazepam 2 Mg/Ml Inj) 0.5 mg IV Q6HR PRN PRN Reason: Anxiety Magnesium Hydroxide (Magnesium Hydroxide 2,400 Mg/10 Ml Cup) 2,400 mg PO DAILY PRN PRN Reason: Constipation Melatonin (Melatonin 3 Mg Tablet) 3 mg PO HS@2100 [facility] Last Admin: 06/03/20 20:13 Dose: 3 mg Documented by: Morphine Sulfate (Morphine Sulfate 4 Mg/Ml Syringe) 4 mg IV Q4HR PRN PRN Reason: Severe Pain Morphine Sulfate (Morphine Sulfate Er 15 Mg Tablet) 15 mg PO BID@0800,1999 [facility]; Protocol Last Admin: 06/03/20 20:13 Dose: 15 mg Documented by: Multivitamins (Multivitamins, Thera 1 Each Tab) 1 each PO DAILY@0800 [facility] Last Admin: 06/03/20 08:41 Dose: 1 each Documented by: Naloxone HCl (Naloxone 0.4 Mg/Ml 1 Ml Vial) 0.2 mg IV Q2M PRN PRN Reason: Opioid Reversal Ondansetron HCl (Ondansetron 4 Mg/2 Ml Vial) 4 mg IVP Q8HR PRN PRN Reason: Nausea And Vomiting Ondansetron HCl (Ondansetron Odt 4 Mg Tab) 4 mg PO Q8H PRN PRN Reason: Nausea Sodium Biphosphate/Sodium Phosphate (Na Phos,M-B/Na Phos,Di-Ba 133 Ml Enema) 133 ml RECTAL DAILY PRN PRN Reason: Constipation Tramadol HCl (Tramadol 50 Mg Tab) 50 mg PO Q6H PRN PRN Reason: Moderate Pain Zinc Sulfate (Zinc Sulfate 220 Mg Cap) 220 mg PO DAILY@0800 [facility] Last Admin: 06/03/20 08:42 Dose: 220 mg Documented by: Past medical history to include: Left hemiparesis, hypertension, epilepsy, GERD, chronic pain syndrome, hyperlipidemia,, vein aneurysm repair. Left arm flaccid and some weakness in the left leg. Social history: Did smoke in the past. No alcohol. Currently at the [facility]. Family history: Reviewed, noncontributory to presentation Physical examination: VITAL SIGNS: 97.5, 67, 17, 124/75, 88% on 5 L GENERAL: laying in bed, awake PSYCH: Alert and oriented x3; mood and affect normal. NEUROLOGICAL: [Cranial nerves grossly intact; no facial asymmetry, left-sided weakness Rest of the exam as per pulmonary and nursing INVESTIGATIONS, reviewed in the clinical context: June 13: D-dimer 0.60 CRP 59.4 White count 13 hemoglobin 13.1 platelets 265 decreased lymphocytes at 0.4 d- dimer 1.07 sodium 134 potassium 4 creatinine 0.87 glucose 278 CRP to 42 pro calcitonin 0.59 EKG tracing personally reviewed by me-normal sinus rhythm Chest [id number] infiltrates Computed tomography scan chest angina for PE protocol: No evidence of PE. Groundglass patchy pulmonary interstitial infiltrates. Blood culture positive for coagulase-negative staph-contaminated Assessment and plan: -Bilateral COVID 19 pneumonia diagnosed about 10 days ago. Patient developed a fever 2 days ago. Associated hypoxia. Patient started IV Decadron, supplements including zinc, vitamin C, vitamin D being added. -Possible gram-negative secondary pneumonia-Levaquin added -Acute hypoxic respiratory failure from pneumonia-supplement oxygen, worsening on 5 L of oxygen. -Chronic left hemiparesis with a flaccid left arm and particularly left lower extremity 2 x 5. -Essential hypertension-continue Zestril -Epilepsy disorder-continue Keppra -GERD stable -Chronic insomnia uses melatonin -Chronic pain syndrome continue on morphine sulfate -Morbid obesity BMI 50.2 -Chronic medical debility patient is pretty much nonambulatory -Contaminated blood culture. DC vancomycin Plan: Continue vitamin D3, IV Decadron 6 mg, Levaquin has been continued, spoke to the nurse to have the patient set up. His incentive spirometry every 10 minutes as instructed. Lovenox subcu.
[2020-06-03] MEDS ORDERED: VANCOMYCIN 2,250 MG in SODIUM CHLORIDE 0.9% 500 ML 500 ML IVPB SCH (23:00)
--- NOTE | 2020-06-04 07:28 | XR ---
EXAMINATION TYPE: XR chest 1V portable DATE OF EXAM: 06/04/2020 HISTORY: Shortness of breath. COMPARISON: June 01, 2020 TECHNIQUE: Single view of the chest is submitted. FINDINGS: Demonstrated are scattered senescent parenchymal change. Bilateral scattered airspace infiltrates persist unchanged. The heart is stable. Hilar and mediastinal structures are within normal limits. Degenerative changes are seen of the dorsal spine. IMPRESSION: 1. Bilateral scattered airspace infiltrates persist unchanged.
[2020-06-04] MEDS: ALBUTEROL HFA INHALER INHALATION PRN ×4 (07:30→18:49)
[2020-06-04] MEDS: guaiFENesin 600 MG TABLET.ER PO SCH ×2 (08:12→21:13)
[2020-06-04] MEDS: MULTIVITAMINS, THERA 1 EACH TAB PO SCH (08:12)
[2020-06-04] MEDS: ZINC SULFATE 220 MG CAP PO SCH (08:12)
[2020-06-04] MEDS: levETIRAcetam 500 MG TAB PO SCH ×2 (08:12→21:12)
[2020-06-04] MEDS: CHOLECALCIFEROL 25 MCG (1000 IU) TABLET PO SCH (08:12)
[2020-06-04] MEDS: DULoxetine HCL 20 MG CAPSULE.DR PO SCH (08:12)
[2020-06-04] MEDS: MORPHINE SULFATE ER 15 MG TABLET PO SCH ×2 (08:12→21:12)
[2020-06-04] MEDS: lisinopriL 10 MG TAB PO SCH (08:12)
[2020-06-04] MEDS: CYANOCOBALAMIN 500 MCG TAB PO SCH (08:12)
[2020-06-04] MEDS: ENOXAPARIN 40 MG/0.4 ML SYRINGE SQ SCH ×2 (08:13→21:14)
[2020-06-04] MEDS: DEXAMETHASONE SOD PHOSPHATE 10 MG/ML 1 ML VIAL IV SCH (08:13)
[2020-06-04] MEDS: ASCORBIC ACID 500 MG TAB PO SCH (08:13)
[2020-06-04 11:10] LABS: African American GFR (CKD) 110.7 (60.0-200.0); C Reactive Protein 3.8 mg/dL (0.0-0.8); Non-African American GFR(CKD) 95.5 (60.0-200.0)
--- NOTE | 2020-06-04 13:14 | P.PN ---
Subjective Progress Note Date: 06/04/20 Principal diagnosis: CoVID 19 pneumonia 60-year-old female, with a history of previous stroke, a couple years ago, and left-sided paralysis, who resides at [facility], presents with complaints of increasing shortness of breath, cough, chest tightness, and fever. She apparently was diagnosed as having COVID 19 infection 10 days ago. She tells us that many residents at the [facility] test positive for coronavirus infection. Because of the high fever, and the increasing shortness of breath, the staff at the [facility] called EMS who transported the patient into the hospital to be evaluated. After evaluation in the emergency room, it was determined that the patient should be admitted for COVID 19 pneumonitis, and acute hypoxemic respiratory failure. The patient was started on oxygen therapy, and albuterol inhaler, Decadron, vitamin C, vitamin D3, zinc, etc. 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 Labs include a white count of 13, hemoglobin 13.1, hematocrit of 40.8, platelet count 265,000. PT and INR were normal. PTT was 20.4, d-dimer was 1.07. Sodium was 134, potassium 4, chlorides 103, CO2 24, anion gap 7, BUN 21, and creatinine 0.87. Ferritin was 441, AST was 38, LDH was 849, C-reactive protein was 243. Her calcitonin level was 0.59. Chest x-ray and computed tomography scan, are consistent with COVID 19 pneumonia. The patient is seen today 06/03/2020 in follow-up on the regular medical floor. She is resting comfortably in bed. Awake and alert in no acute distress. She denies any worsening shortness of breath, cough or congestion. Maintaining O2 saturations in the high 80s low 90s on 5 L/m per nasal cannula. She's afebrile. Hemodynamically stable. Preliminary blood culture reveals coag-negative staph. Creatinine 0.69. She's been initiated on vancomycin. Continued on bronchodilators, vitamin supplements, Decadron, Levaquin. The patient is seen today 06/04/2020 in follow-up on the regular medical floor. She is currently resting comfortably in bed. Awake and alert in no acute distress. Maintaining O2 saturations in the low 90s on 4 L/m per nasal cannula. She's been afebrile. Hemodynamically stable. D-dimer 0.88. Creatinine 0.7. LDH 328. C-reactive protein 3.8. Remains on Decadron, Lovenox, vitamin suppl ements. Objective - Vital Signs Vital signs: Vital Signs Temp 98.1 F 06/04/20 10:02 Pulse 67 06/04/20 10:02 Resp 18 06/04/20 10:02 BP 128/76 06/04/20 10:02 Pulse Ox 90 L 06/04/20 10:02 Intake & Output 06/03/20 06/04/20 06/04/20 18:59 06:59 18:59 Intake Total 100 Balance 100 Intake: Oral 100 Other: # Voids 2 1 - Exam No acute distress, oriented 3. Pleasant 52-year-old female patient. On 4 L nasal cannula. HEENT examination is grossly unremarkable. Mucous membranes are moist. No oral lesions. Neck supple. Full range of motion. No adenopathy thyromegaly or neck vein distention. Cardiovascular examination reveals regular rhythm rate. S1-S2 normal. No S3 or S4. No discernible murmur noted. Heart rate 66 bpm. Lungs reveal diminished bilateral breath sounds. The patient does not take deep breaths. No distinct adventitious lung sounds were noted. Abdomen soft bowel sounds are heard. No masses or tenderness. Extremities are intact. No cyanosis clubbing or edema. Skin is without rash or lesion. Neurologic examination reveals left-sided weakness with flexion contracture of the left hand. - Labs CBC & Chem 7: 06/01/20 15:06 06/04/20 05:48 Labs: Abnormal Lab Results - Last 24 Hours (Table) 06/03/20 06/03/20 06/03/20 Range/Units 16:00 16:00 20:41 D-Dimer 0.60 H (<0.60) mg/L FEU POC Glucose (mg/dL) 221 H (75-99) mg/dL Lactate Dehydrogenase (120-246) U/L C-Reactive Protein 59.4 H (<10.0) mg/L 06/04/20 06/04/20 Range/Units 05:48 05:48 D-Dimer 0.88 H (<0.60) mg/L FEU POC Glucose (mg/dL) (75-99) mg/dL Lactate Dehydrogenase 328 H (120-246) U/L C-Reactive Protein 3.8 H (<10.0) mg/L Microbiology - Last 24 Hours (Table) 06/01/20 15:06 Blood Culture - Preliminary Blood No Growth after 48 hours Assessment and Plan Assessment: COVID 19 pneumonia/pneumonitis, with acute hypoxemic respiratory failure. History of ruptured aneurysm, with left-sided weakness/paralysis. History of hypertension. Obesity. Coag negative bacteremia, suspect contaminant Plan: The patient was seen and evaluated by Dr. Verdugo Continue the current treatment plan for CoVID 19 Titrate down the FiO2 as tolerated Plan is for return to [facility] I, the cosigning physician, performed a history & physical examination of the patient. Lungs sounds with crackles in the bilateral posterior bases. Maintaining good O2 saturations in the 90s on 4 L/m per nasal cannula. I discussed the assessment and plan of care with my nurse practitioner, Dali Toledo. I attest to the above note as dictated by her.
[2020-06-04] MEDS: LEVOFLOXACIN 500 MG TAB PO SCH (17:14)
--- NOTE | 2020-06-04 20:21 | P.PN ---
Progress Note - Text Progress Note Date: 06/04/20 Chief Complaint: Fever History of presenting complaint: This is a pleasant 60-year-old patient follows a Dr. Cunningham at the [facility]. Blood the EMS report: They've informed by the [facility] that that for several days patient has been needing increasing amount of supplemental oxygen. Patient's pulse ox and dropped down to 83% on a nonrebreather 5 L/m. Apparently patient was diagnosed with COVID 19/10 days ago. Started off with fever about 2 days ago. She has a cough. Slightly congested. Appetite is okay. No headaches. Some body aches. Chronic stable medical conditions include hypertension, seizure disorder, GERD, chronic pain, hyperlipidemia. Patient has left hemiparesis. History of brain aneurysm repair. Has no use of the left arm. Some movement of the left leg. Otherwise patient is able to communicate. Admitted with COVID 19 bilateral pneumonia, superimposed suspected gram-negative bacteria pneumonia, acute hypoxic respiratory failure. Patient started on Decadron, vitamin C vitamin D zinc supplement. Today-laying in bed. Short of breath. Slight cough. Oral intake fair. Review of systems: Was done for constitutional, cardiovascular, GI, pulmonary. relevant finding as above Active Medications Acetaminophen (Acetaminophen Tab 325 Mg Tab) 650 mg PO Q4H PRN PRN Reason: Pain Hydrocodone Bitart/Acetaminophen (Hydrocodone/Apap 5-325mg 1 Each Tab) 1 each PO Q4HR PRN PRN Reason: Moderate Pain Albuterol Sulfate (Albuterol Hfa Inhaler) 2 puff INHALATION RT-Q4H PRN PRN Reason: Shortness Of Breath Last Admin: 06/04/20 18:49 Dose: 2 puff Documented by: Ascorbic Acid (Ascorbic Acid 500 Mg Tab) 1,000 mg PO DAILY@0800 [facility] Last Admin: 06/04/20 08:13 Dose: 1,000 mg Documented by: Baclofen (Baclofen 10 Mg Tab) 10 mg PO HS@2000 [facility] Last Admin: 06/03/20 20:12 Dose: 10 mg Documented by: Bisacodyl (Bisacodyl 10 Mg Supp) 10 mg RECTAL DAILY PRN PRN Reason: Constipation Cholecalciferol (Cholecalciferol 25 Mcg (1000 Iu) Tablet) 50 mcg PO DAILY@0800 [facility] Last Admin: 06/04/20 08:12 Dose: 50 mcg Documented by: Cyanocobalamin (Cyanocobalamin 500 Mcg Tab) 250 mcg PO DAILY@0800 [facility] Last Admin: 06/04/20 08:12 Dose: 250 mcg Documented by: Dexamethasone Sodium Phosphate (Dexamethasone Sod Phosphate 10 Mg/Ml 1 Ml Vial) 6 mg IV DAILY [facility] Last Admin: 06/04/20 08:13 Dose: 6 mg Documented by: Duloxetine HCl (Duloxetine Hcl 20 Mg Capsule.Dr) 20 mg PO DAILY@0800 [facility] Last Admin: 06/04/20 08:12 Dose: 20 mg Documented by: Enoxaparin Sodium (Enoxaparin 40 Mg/0.4 Ml Syringe) 40 mg SQ BID [facility] Last Admin: 06/04/20 08:13 Dose: Not Given Documented by: Guaifenesin (Guaifenesin 600 Mg Tablet.Er) 600 mg PO BID@0800,2100 [facility] Last Admin: 06/04/20 08:12 Dose: 600 mg Documented by: Hydromorphone HCl (Hydromorphone 0.5 Mg/0.5 Ml Syringe) 0.5 mg IVP Q3HR PRN PRN Reason: Moderate Pain Levetiracetam (Levetiracetam 500 Mg Tab) 500 mg PO BID@0800,2000 [facility] Last Admin: 06/04/20 08:12 Dose: 500 mg Documented by: Levofloxacin (Levofloxacin 500 Mg Tab) 500 mg PO DAILY@1700 [facility] Last Admin: 06/04/20 17:14 Dose: 500 mg Documented by: Lisinopril (Lisinopril 10 Mg Tab) 10 mg PO DAILY@0800 [facility] Last Admin: 06/04/20 08:12 Dose: 10 mg Documented by: Loperamide HCl (Loperamide 2 Mg Cap) 2 mg PO TID PRN PRN Reason: Diarrhea Lorazepam (Lorazepam 2 Mg/Ml Inj) 0.5 mg IV Q6HR PRN PRN Reason: Anxiety Magnesium Hydroxide (Magnesium Hydroxide 2,400 Mg/10 Ml Cup) 2,400 mg PO DAILY PRN PRN Reason: Constipation Melatonin (Melatonin 3 Mg Tablet) 3 mg PO HS@2100 [facility] Last Admin: 06/03/20 20:13 Dose: 3 mg Documented by: Morphine Sulfate (Morphine Sulfate 4 Mg/Ml Syringe) 4 mg IV Q4HR PRN PRN Reason: Severe Pain Morphine Sulfate (Morphine Sulfate Er 15 Mg Tablet) 15 mg PO BID@0800,1999 [facility]; Protocol Last Admin: 06/04/20 08:12 Dose: 15 mg Documented by: Multivitamins (Multivitamins, Thera 1 Each Tab) 1 each PO DAILY@08 [facility] Last Admin: 06/04/20 08:12 Dose: 1 each Documented by: Naloxone HCl (Naloxone 0.4 Mg/Ml 1 Ml Vial) 0.2 mg IV Q2M PRN PRN Reason: Opioid Reversal Ondansetron HCl (Ondansetron 4 Mg/2 Ml Vial) 4 mg IVP Q8HR PRN PRN Reason: Nausea And Vomiting Ondansetron HCl (Ondansetron Odt 4 Mg Tab) 4 mg PO Q8H PRN PRN Reason: Nausea Sodium Biphosphate/Sodium Phosphate (Na Phos,M-B/Na Phos,Di-Ba 133 Ml Enema) 133 ml RECTAL DAILY PRN PRN Reason: Constipation Tramadol HCl (Tramadol 50 Mg Tab) 50 mg PO Q6H PRN PRN Reason: Moderate Pain Zinc Sulfate (Zinc Sulfate 220 Mg Cap) 220 mg PO DAILY@08 [facility] Last Admin: 06/04/20 08:12 Dose: 220 mg Documented by: Past medical history to include: Left hemiparesis, hypertension, epilepsy, GERD, chronic pain syndrome, hyperlipidemia,, vein aneurysm repair. Left arm flaccid and some weakness in the left leg. Social history: Did smoke in the past. No alcohol. Currently at the [facility]. Family history: Reviewed, noncontributory to presentation Physical examination: VITAL SIGNS: 98.1, 67, 18, 128 x 76, 90% on 4 L GENERAL: laying in bed, awake PSYCH: Alert and oriented x3; mood and affect normal. NEUROLOGICAL: [Cranial nerves grossly intact; no facial asymmetry, left-sided weakness Rest of the exam as per pulmonary and nursing INVESTIGATIONS, reviewed in the clinical context: June 04: D-dimer 0.88 CRP 3.8 June 03: D-dimer 0.60 CRP 59.4 White count 13 hemoglobin 13.1 platelets 265 decreased lymphocytes at 0.4 d- dimer 1.07 sodium 134 potassium 4 creatinine 0.87 glucose 278 CRP to 42 pro calcitonin 0.59 EKG tracing personally reviewed by me-normal sinus rhythm Chest [id number] infiltrates Computed tomography scan chest angina for PE protocol: No evidence of PE. Groundglass patchy pulmonary interstitial infiltrates. Blood culture positive for coagulase-negative staph-contaminated Assessment and plan: -Bilateral COVID 19 pneumonia diagnosed about 10 days ago. Patient developed a fever 2 days ago. Associated hypoxia. Patient started IV Decadron, supplements including zinc, vitamin C, vitamin D being added. -Possible gram-negative secondary pneumonia-Levaquin added -Acute hypoxic respiratory failure from pneumonia-supplement oxygen, slow to respond on 4 L of oxygen. -Chronic left hemiparesis with a flaccid left arm and particularly left lower extremity 2 x 5. -Essential hypertension-continue Zestril -Epilepsy disorder-continue Keppra -GERD stable -Chronic insomnia uses melatonin -Chronic pain syndrome continue on morphine sulfate -Morbid obesity BMI 50.2 -Chronic medical debility patient is pretty much nonambulatory -Contaminated blood culture. DC vancomycin Plan: Continue vitamin D3, IV Decadron 6 mg, Levaquin . Patient has not been using the incentive spirometry. Reminded. Patient pulse ox is only 90% on 4 L. Follow closely with pulmonary.
[2020-06-04] MEDS: BACLOFEN 10 MG TAB PO SCH (21:12)
[2020-06-04] MEDS: MELATONIN 3 MG TABLET PO SCH (21:13)
[2020-06-05 06:18] LABS: African American GFR (CKD) >90 (>60 ml/min/1.73 sqM); C Reactive Protein 24.3 mg/L (<10.0); Non-African American GFR(CKD) >90 (>60 ml/min/1.73 sqM)
[2020-06-05] MEDS: CHOLECALCIFEROL 25 MCG (1000 IU) TABLET PO SCH (07:20)
[2020-06-05] MEDS: ZINC SULFATE 220 MG CAP PO SCH (07:20)
[2020-06-05] MEDS: MORPHINE SULFATE ER 15 MG TABLET PO SCH ×2 (07:21→19:35)
[2020-06-05] MEDS: CYANOCOBALAMIN 500 MCG TAB PO SCH (07:21)
[2020-06-05] MEDS: MULTIVITAMINS, THERA 1 EACH TAB PO SCH (07:21)
[2020-06-05] MEDS: guaiFENesin 600 MG TABLET.ER PO SCH ×2 (07:22→19:36)
[2020-06-05] MEDS: ASCORBIC ACID 500 MG TAB PO SCH (07:22)
[2020-06-05] MEDS: lisinopriL 10 MG TAB PO SCH (07:22)
[2020-06-05] MEDS: DULoxetine HCL 20 MG CAPSULE.DR PO SCH (07:23)
[2020-06-05] MEDS: ENOXAPARIN 40 MG/0.4 ML SYRINGE SQ SCH ×2 (07:23→19:36)
[2020-06-05] MEDS: DEXAMETHASONE SOD PHOSPHATE 10 MG/ML 1 ML VIAL IV SCH ×2 (07:24→23:01)
[2020-06-05] MEDS: levETIRAcetam 500 MG TAB PO SCH ×2 (08:15→19:35)
[2020-06-05] MEDS: ALBUTEROL HFA INHALER INHALATION PRN ×2 (08:22→11:33)
--- NOTE | 2020-06-05 14:38 | P.PN ---
Subjective Progress Note Date: 06/05/20 60-year-old female, with a history of previous stroke, a couple years ago, and left-sided paralysis, who resides at [facility], presents with complaints of increasing shortness of breath, cough, chest tightness, and fever. She apparently was diagnosed as having COVID 19 infection 10 days ago. She tells us that many residents at the [facility] test positive for coronavirus infection. Because of the high fever, and the increasing shortness of breath, the staff at the [facility] called EMS who transported the patient into the hospital to be evaluated. After evaluation in the emergency room, it was determined that the patient should be admitted for COVID 19 pneumonitis, and acute hypoxemic respiratory failure. The patient was started on oxygen therapy, and albuterol inhaler, Decadron, vitamin C, vitamin D3, zinc, etc. 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 Labs include a white count of 13, hemoglobin 13.1, hematocrit of 40.8, platelet count 265,000. PT and INR were normal. PTT was 20.4, d-dimer was 1.07. Sodium was 134, potassium 4, chlorides 103, CO2 24, anion gap 7, BUN 21, and creatinine 0.87. Ferritin was 441, AST was 38, LDH was 849, C-reactive protein was 243. Her calcitonin level was 0.59. Chest x-ray and computed tomography scan, are consistent with COVID 19 pne umonia. The patient is seen today 06/03/2020 in follow-up on the regular medical floor. She is resting comfortably in bed. Awake and alert in no acute distress. She denies any worsening shortness of breath, cough or congestion. Maintaining O2 saturations in the high 80s low 90s on 5 L/m per nasal cannula. She's afebrile. Hemodynamically stable. Preliminary blood culture reveals coag-negative staph. Creatinine 0.69. She's been initiated on vancomycin. Continued on bronchodilators, vitamin supplements, Decadron, Levaquin. The patient is seen today 06/04/2020 in follow-up on the regular medical floor. She is currently resting comfortably in bed. Awake and alert in no acute distress. Maintaining O2 saturations in the low 90s on 4 L/m per nasal cannula. She's been afebrile. Hemodynamically stable. D-dimer 0.88. Creatinine 0.7. LDH 328. C-reactive protein 3.8. Remains on Decadron, Lovenox, vitamin supplements. On 06/05/2020 patient seen in follow-up on medical surgical floor. She is calm and comfortable, she is currently on 4 L of oxygen her pulse ox is between 90-9 6%, she continues on Decadron 6 mg daily, C, vitamin D3 and zinc. Patient was beyond the window for Remdesivir, her breathing is comfortable, signs have been stable, there has been no worsening in her respiratory status, patient is essentially bedbound related to her history of CVA and left-sided weakness. Her chest x-ray yesterday showed bilateral scattered airspace infiltrates unchanged. D-dimer was 0.60, undetermined are improving. Is on Levaquin for empiric antibiotic coverage in view of elevated pro calcitonin. Objective - Vital Signs Vital signs: Vital Signs Temp 97.8 F 06/05/20 10:00 Pulse 62 06/05/20 10:00 Resp 18 06/05/20 10:00 BP 134/82 06/05/20 10:00 Pulse Ox 90 L 06/05/20 10:00 Intake & Output 06/04/20 06/05/20 06/05/20 18:59 06:59 18:59 Other: # Voids 4 3 - Exam GENERAL EXAM: Alert, active, very pleasant, 52-year-old white female, on 4 L of oxygen a pulse ox of 90%, comfortable in no apparent distress. HEAD: Normocephalic/atraumatic. EYES: Normal reaction of pupils, equal size. Conjunctiva pink, sclera white. NOSE: Clear with pink turbinates. THROAT: No erythema or exudates. NECK: No masses, no JVD, no thyroid enlargement, no adenopathy. CHEST: No chest wall deformity. Symmetrical expansion. LUNGS: Equal air entry with no crackles, wheeze, rhonchi or dullness. CVS: Regular rate and rhythm, normal S1 and S2, no gallops, no murmurs, no rubs ABDOMEN: Soft, nontender. No hepatosplenomegaly, normal bowel sounds, no guarding or rigidity. EXTREMITIES: No clubbing, no edema, no cyanosis, 2+ pulses and upper and lower extremities. MUSCULOSKELETAL: Muscle strength and tone normal. SPINE: No scoliosis or deformity SKIN: No rashes CENTRAL NERVOUS SYSTEM: Alert and oriented -3. Left-sided weakness, and chronic contracture of left hand PSYCHIATRIC: Alert and oriented -3. Appropriate affect. Intact judgment and i nsight. - Labs CBC & Chem 7: 06/01/20 15:06 06/05/20 05:32 Labs: Abnormal Lab Results - Last 24 Hours (Table) 06/05/20 06/05/20 Range/Units 05:32 05:32 D-Dimer 4.16 H (<0.60) mg/L FEU C-Reactive Protein 24.3 H (<10.0) mg/L Microbiology - Last 24 Hours (Table) 06/01/20 15:22 Blood Culture Gram Stain - Final Blood Blood Culture - Final Coagulase Negative Staph 06/01/20 15:06 Blood Culture - Preliminary Blood No Growth after 72 hours Assessment and Plan Plan: Assessment: COVID 19 pneumonia/pneumonitis, with acute hypoxemic respiratory failure. History of ruptured aneurysm, with left-sided weakness/paralysis. History of hypertension. Obesity. Coag negative bacteremia, suspect contaminant, culture coagulase negative staph Plan: Current medical treatment, continue current dose Decadron, wean FiO2, pain follow-up on calcitonin, vital signs have been stable, breathing comfortably, vital signs are stable, we'll obtain follow-up chest x-ray tomorrow if it remains the same or stable and patient continues to be stable may consider for possible discharge back to the [facility] tomorrow I performed a history & physical examination of the patient and discussed their management with my nurse practitioner, Roma Lopez. I reviewed the nurse practitioner's note and agree with the documented findings and plan of care. Lung sounds are positive for diminished breath sounds. The findings and the impression was discussed with the patient. I attest to the documentation by the nurse practitioner. Time with Patient: Less than 30
[2020-06-05] MEDS: LEVOFLOXACIN 500 MG TAB PO SCH (16:31)
[2020-06-05] MEDS: BACLOFEN 10 MG TAB PO SCH (19:34)
[2020-06-05] MEDS: MELATONIN 3 MG TABLET PO SCH (19:36)
--- NOTE | 2020-06-05 22:16 | P.PN ---
Progress Note - Text Progress Note Date: 06/05/20 Chief Complaint: Fever History of presenting complaint: This is a pleasant 60-year-old patient follows a Dr. Cunningham at the [facility]. Blood the EMS report: They've informed by the [facility] that that for several days patient has been needing increasing amount of supplemental oxygen. Patient's pulse ox and dropped down to 83% on a nonrebreather 5 L/m. Apparently patient was diagnosed with COVID 19/10 days ago. Started off with fever about 2 days ago. She has a cough. Slightly congested. Appetite is okay. No headaches. Some body aches. Chronic stable medical conditions include hypertension, seizure disorder, GERD, chronic pain, hyperlipidemia. Patient has left hemiparesis. History of brain aneurysm repair. Has no use of the left arm. Some movement of the left leg. Otherwise patient is able to communicate. Admitted with COVID 19 bilateral pneumonia, superimposed suspected gram-negative bacteria pneumonia, acute hypoxic respiratory failure. Patient started on Decadron, vitamin C vitamin D zinc supplement. Today-laying in bed. Slight cough. Slight shortness of breath. Oral intake over 75% to loss of taste or smell. Review of systems: Was done for constitutional, cardiovascular, GI, pulmonary. relevant finding as above Active Medications Acetaminophen (Acetaminophen Tab 325 Mg Tab) 650 mg PO Q4H PRN PRN Reason: Pain Hydrocodone Bitart/Acetaminophen (Hydrocodone/Apap 5-325mg 1 Each Tab) 1 each PO Q4HR PRN PRN Reason: Moderate Pain Albuterol Sulfate (Albuterol Hfa Inhaler) 2 puff INHALATION RT-Q4H PRN PRN Reason: Shortness Of Breath Last Admin: 06/05/20 11:33 Dose: 2 puff Documented by: Ascorbic Acid (Ascorbic Acid 500 Mg Tab) 1,000 mg PO DAILY@0800 [facility] Last Admin: 06/05/20 07:22 Dose: 1,000 mg Documented by: Baclofen (Baclofen 10 Mg Tab) 10 mg PO HS@2000 [facility] Last Admin: 06/05/20 19:34 Dose: 10 mg Documented by: Bisacodyl (Bisacodyl 10 Mg Supp) 10 mg RECTAL DAILY PRN PRN Reason: Constipation Cholecalciferol (Cholecalciferol 25 Mcg (1000 Iu) Tablet) 50 mcg PO DAILY@0800 [facility] Last Admin: 06/05/20 07:20 Dose: 50 mcg Documented by: Cyanocobalamin (Cyanocobalamin 500 Mcg Tab) 250 mcg PO DAILY@0800 [facility] Last Admin: 06/05/20 07:21 Dose: 250 mcg Documented by: Dexamethasone Sodium Phosphate (Dexamethasone Sod Phosphate 10 Mg/Ml 1 Ml Vial) 6 mg IV DAILY [facility] Last Admin: 06/05/20 07:24 Dose: 6 mg Documented by: Duloxetine HCl (Duloxetine Hcl 20 Mg Capsule.Dr) 20 mg PO DAILY@0800 [facility] Last Admin: 06/05/20 07:23 Dose: 20 mg Documented by: Enoxaparin Sodium (Enoxaparin 40 Mg/0.4 Ml Syringe) 40 mg SQ BID [facility] Last Admin: 06/05/20 19:36 Dose: 40 mg Documented by: Guaifenesin (Guaifenesin 600 Mg Tablet.Er) 600 mg PO BID@0800,2100 [facility] Last Admin: 06/05/20 19:36 Dose: 600 mg Documented by: Hydromorphone HCl (Hydromorphone 0.5 Mg/0.5 Ml Syringe) 0.5 mg IVP Q3HR PRN PRN Reason: Moderate Pain Levetiracetam (Levetiracetam 500 Mg Tab) 500 mg PO BID@0800,2000 [facility] Last Admin: 06/05/20 19:35 Dose: 500 mg Documented by: Levofloxacin (Levofloxacin 500 Mg Tab) 500 mg PO DAILY@1700 [facility] Last Admin: 06/05/20 16:31 Dose: 500 mg Documented by: Lisinopril (Lisinopril 10 Mg Tab) 10 mg PO DAILY@0800 [facility] Last Admin: 06/05/20 07:22 Dose: 10 mg Documented by: Loperamide HCl (Loperamide 2 Mg Cap) 2 mg PO TID PRN PRN Reason: Diarrhea Lorazepam (Lorazepam 2 Mg/Ml Inj) 0.5 mg IV Q6HR PRN PRN Reason: Anxiety Magnesium Hydroxide (Magnesium Hydroxide 2,400 Mg/10 Ml Cup) 2,400 mg PO DAILY PRN PRN Reason: Constipation Melatonin (Melatonin 3 Mg Tablet) 3 mg PO HS@2100 [facility] Last Admin: 06/05/20 19:36 Dose: 3 mg Documented by: Morphine Sulfate (Morphine Sulfate 4 Mg/Ml Syringe) 4 mg IV Q4HR PRN PRN Reason: Severe Pain Morphine Sulfate (Morphine Sulfate Er 15 Mg Tablet) 15 mg PO BID@0800,1999 [facility]; Protocol Last Admin: 06/05/20 19:35 Dose: 15 mg Documented by: Multivitamins (Multivitamins, Thera 1 Each Tab) 1 each PO DAILY@0800 [facility] Last Admin: 06/05/20 07:21 Dose: 1 each Documented by: Naloxone HCl (Naloxone 0.4 Mg/Ml 1 Ml Vial) 0.2 mg IV Q2M PRN PRN Reason: Opioid Reversal Ondansetron HCl (Ondansetron 4 Mg/2 Ml Vial) 4 mg IVP Q8HR PRN PRN Reason: Nausea And Vomiting Ondansetron HCl (Ondansetron Odt 4 Mg Tab) 4 mg PO Q8H PRN PRN Reason: Nausea Sodium Biphosphate/Sodium Phosphate (Na Phos,M-B/Na Phos,Di-Ba 133 Ml Enema) 133 ml RECTAL DAILY PRN PRN Reason: Constipation Tramadol HCl (Tramadol 50 Mg Tab) 50 mg PO Q6H PRN PRN Reason: Moderate Pain Zinc Sulfate (Zinc Sulfate 220 Mg Cap) 220 mg PO DAILY@0800 [facility] Last Admin: 06/05/20 07:20 Dose: 220 mg Documented by: Past medical history to include: Left hemiparesis, hypertension, epilepsy, GERD, chronic pain syndrome, hyperlipidemia,, vein aneurysm repair. Left arm flaccid and some weakness in the left leg. Social history: Did smoke in the past. No alcohol. Currently at the [facility]. Family history: Reviewed, noncontributory to presentation Physical examination: VITAL SIGNS: 98, 71, 20, 127/64, 94% on 4 L GENERAL: laying in bed, awake PSYCH: Alert and oriented x3; mood and affect normal. NEUROLOGICAL: [Cranial nerves grossly intact; no facial asymmetry, left-sided weakness Rest of the exam as per pulmonary and nursing INVESTIGATIONS, reviewed in the clinical context: Febrile he aids: D-dimer 4.16 CRP 24.3 May 7: D-dimer 0.88 CRP 3.8 May 6: D-dimer 0.60 CRP 59.4 White count 13 hemoglobin 13.1 platelets 265 decreased lymphocytes at 0.4 d- dimer 1.07 sodium 134 potassium 4 creatinine 0.87 glucose 278 CRP to 42 pro calcitonin 0.59 EKG tracing personally reviewed by me-normal sinus rhythm Chest [id number] infiltrates Computed tomography scan chest angina for PE protocol: No evidence of PE. Groundglass patchy pulmonary interstitial infiltrates. Blood culture positive for coagulase-negative staph-contaminated Assessment and plan: -Bilateral COVID 19 pneumonia diagnosed about 10 days ago. Patient developed a fever 2 days ago. Associated hypoxia. Patient started IV Decadron, supplements including zinc, vitamin C, vitamin D being added. Worsening of CRP d-dimer. Was changed to therapeutic doses of Lovenox. Increase dose of Decadron. -Possible gram-negative secondary pneumonia-Levaquin added -Acute hypoxic respiratory failure from pneumonia-supplement oxygen, slow to respond on 4 L of oxygen. -Chronic left hemiparesis with a flaccid left arm and particularly left lower extremity 2 x 5. -Essential hypertension-continue Zestril -Epilepsy disorder-continue Keppra -GERD stable -Chronic insomnia uses melatonin -Chronic pain syndrome continue on morphine sulfate -Morbid obesity BMI 50.2 -Chronic medical debility patient is pretty much nonambulatory -Contaminated blood culture. DC vancomycin
[2020-06-05] MEDS: ENOXAPARIN 100 MG/ML SYRINGE SQ SCH (23:01)
--- NOTE | 2020-06-06 08:29 | XR ---
EXAMINATION TYPE: XR chest 1V portable DATE OF EXAM: 06/06/2020 COMPARISON: Chest x-ray 06/04/2020 HISTORY: Shortness of breath TECHNIQUE: Single frontal view of the chest is obtained. FINDINGS: Lung volumes are low, patient is rotated. There is no evident pneumothorax or effusion. Pa tchy bilateral density persists within the lungs. Cardiac mediastinal silhouette is thought to be sta ble accounting for differences in technique. There are overlying leads. IMPRESSION: Expiratory rotated exam. Correlate for pneumonia, atelectasis.
[2020-06-06] MEDS: DEXAMETHASONE SOD PHOSPHATE 10 MG/ML 1 ML VIAL IV SCH (08:51)
[2020-06-06] MEDS: MORPHINE SULFATE ER 15 MG TABLET PO SCH (08:52)
[2020-06-06] MEDS: MULTIVITAMINS, THERA 1 EACH TAB PO SCH (08:52)
[2020-06-06] MEDS: ASCORBIC ACID 500 MG TAB PO SCH (08:53)
[2020-06-06] MEDS: CYANOCOBALAMIN 500 MCG TAB PO SCH (08:53)
[2020-06-06] MEDS: guaiFENesin 600 MG TABLET.ER PO SCH (08:53)
[2020-06-06] MEDS: ZINC SULFATE 220 MG CAP PO SCH (08:53)
[2020-06-06] MEDS: DULoxetine HCL 20 MG CAPSULE.DR PO SCH (08:54)
[2020-06-06] MEDS: levETIRAcetam 500 MG TAB PO SCH (08:54)
[2020-06-06] MEDS: CHOLECALCIFEROL 25 MCG (1000 IU) TABLET PO SCH (08:55)
[2020-06-06] MEDS: lisinopriL 10 MG TAB PO SCH (08:55)
[2020-06-06] MEDS: ENOXAPARIN 100 MG/ML SYRINGE SQ SCH (08:55)
[2020-06-06 10:23] VITALS: RESP 20
[2020-06-06 12:03] LABS: African American GFR (CKD) 94.2 (60.0-200.0); Non-African American GFR(CKD) 81.3 (60.0-200.0)
[2020-06-06] MEDS: ALBUTEROL HFA INHALER INHALATION PRN (12:19)
--- NOTE | 2020-06-06 12:21 | P.PN ---
Subjective Progress Note Date: 06/06/20 60-year-old female, with a history of previous stroke, a couple years ago, and left-sided paralysis, who resides at [facility], presents with complaints of increasing shortness of breath, cough, chest tightness, and fever. She apparently was diagnosed as having COVID 19 infection 10 days ago. She tells us that many residents at the [facility] test positive for coronavirus infection. Because of the high fever, and the increasing shortness of breath, the staff at the [facility] called EMS who transported the patient into the hospital to be evaluated. After evaluation in the emergency room, it was determined that the patient should be admitted for COVID 19 pneumonitis, and acute hypoxemic respiratory failure. The patient was started on oxygen therapy, and albuterol inhaler, Decadron, vitamin C, vitamin D3, zinc, etc. 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 Labs include a white count of 13, hemoglobin 13.1, hematocrit of 40.8, platelet count 265,000. PT and INR were normal. PTT was 20.4, d-dimer was 1.07. Sodium was 134, potassium 4, chlorides 103, CO2 24, anion gap 7, BUN 21, and creatinine 0.87. Ferritin was 441, AST was 38, LDH was 849, C-reactive protein was 243. Her calcitonin level was 0.59. Chest x-ray and computed tomography scan, are consistent with COVID 19 pne umonia. The patient is seen today 06/03/2020 in follow-up on the regular medical floor. She is resting comfortably in bed. Awake and alert in no acute distress. She denies any worsening shortness of breath, cough or congestion. Maintaining O2 saturations in the high 80s low 90s on 5 L/m per nasal cannula. She's afebrile. Hemodynamically stable. Preliminary blood culture reveals coag-negative staph. Creatinine 0.69. She's been initiated on vancomycin. Continued on bronchodilators, vitamin supplements, Decadron, Levaquin. The patient is seen today 06/04/2020 in follow-up on the regular medical floor. She is currently resting comfortably in bed. Awake and alert in no acute distress. Maintaining O2 saturations in the low 90s on 4 L/m per nasal cannula. She's been afebrile. Hemodynamically stable. D-dimer 0.88. Creatinine 0.7. LDH 328. C-reactive protein 3.8. Remains on Decadron, Lovenox, vitamin supplements. On 06/05/2020 patient seen in follow-up on medical surgical floor. She is calm and comfortable, she is currently on 4 L of oxygen her pulse ox is between 90-9 6%, she continues on Decadron 6 mg daily, C, vitamin D3 and zinc. Patient was beyond the window for Remdesivir, her breathing is comfortable, signs have been stable, there has been no worsening in her respiratory status, patient is essentially bedbound related to her history of CVA and left-sided weakness. Her chest x-ray yesterday showed bilateral scattered airspace infiltrates unchanged. D-dimer was 0.60, undetermined are improving. Is on Levaquin for empiric antibiotic coverage in view of elevated pro calcitonin. 06/06/2020 patient seen in follow-up on medical surgical floor, she is resting comfortably in bed, no worsening dyspnea, no cough, discomfort, she is awake and alert, oriented 3, answering questions appropriately, lung sounds are clear, diminished at the bases, vital signs have been stable, she is on it is of oxygen her pulse ox is 94%, she's been afebrile, she remains on IV dexamethasone 6 kg twice daily, vitamin C, vitamin D, zinc, these patients d-dimer was over 4, and Lovenox dose was increased to therapeutic doses and was increased to 100 mg twice daily, on today's labs inflammatory markers are improving, d-dimer is down to 1, and we will adjust Lovenox dose to prophylactic dose at 40 mg daily. Chest x-ray has been reviewed showing low lung volumes, patchy bilateral density. She has been stable, she has no specific complaints, awaiting oral intake. She is hoping to return to [facility] and rehab where she can get up in the wheelchair Objective - Vital Signs Vital signs: Vital Signs Temp 98.0 F 06/06/20 10:00 Pulse 67 06/06/20 10:00 Resp 20 06/06/20 10:00 BP 128/71 06/06/20 10:00 Pulse Ox 94 L 06/06/20 10:00 Intake & Output 06/05/20 06/06/20 06/06/20 18:59 06:59 18:59 Output Total 400 500 Balance -400 -500 Output: Urine 400 500 - Exam GENERAL EXAM: Alert, active, very pleasant, 52-year-old white female, on 4 L of oxygen a pulse ox of 93%, comfortable in no apparent distress. HEAD: Normocephalic/atraumatic. EYES: Normal reaction of pupils, equal size. Conjunctiva pink, sclera white. NOSE: Clear with pink turbinates. THROAT: No erythema or exudates. NECK: No masses, no JVD, no thyroid enlargement, no adenopathy. CHEST: No chest wall deformity. Symmetrical expansion. LUNGS: Equal air entry with no crackles, wheeze, rhonchi or dullness. CVS: Regular rate and rhythm, normal S1 and S2, no gallops, no murmurs, no rubs ABDOMEN: Soft, nontender. No hepatosplenomegaly, normal bowel sounds, no guarding or rigidity. EXTREMITIES: No clubbing, no edema, no cyanosis, 2+ pulses and upper and lower extremities. MUSCULOSKELETAL: Muscle strength and tone normal. SPINE: No scoliosis or deformity SKIN: No rashes CENTRAL NERVOUS SYSTEM: Alert and oriented -3. Left-sided weakness, and ch ronic contracture of left hand PSYCHIATRIC: Alert and oriented -3. Appropriate affect. Intact judgment and insight. - Labs CBC & Chem 7: 06/01/20 15:06 06/06/20 06:36 Labs: Abnormal Lab Results - Last 24 Hours (Table) 06/06/20 06/06/20 Range/Units 06:36 06:36 D-Dimer 1.07 H (<0.60) mg/L FEU C-Reactive Protein 19.0 H (<10.0) mg/L Microbiology - Last 24 Hours (Table) 06/01/20 15:06 Blood Culture - Preliminary Blood No Growth after 96 hours 06/01/20 15:22 Blood Culture Gram Stain - Final Blood Blood Culture - Final Coagulase Negative Staph Assessment and Plan Plan: Assessment: COVID 19 pneumonia/pneumonitis, with acute hypoxemic respiratory failure. History of ruptured aneurysm, with left-sided weakness/paralysis. History of hypertension. Obesity. Coag negative bacteremia, suspect contaminant, culture coagulase negative staph Elevated d-dimer, related to COVID 19 pneumonia, improving Elevated inflammatory markers, improving Plan: Continue dexamethasone, d-dimer has trended down, we will adjust the Lovenox down to 40 mg daily, inflammatory markers are improving, and dyspnea, vital signs have been stable, hence overnight. From pulmonary perspective patient could be considered for discharge back to the [facility] today. She can finish outpatient course of oral Decadron and antibiotics. I performed a history & physical examination of the patient and discussed their management with my nurse practitioner, Roma Lopez. I reviewed the nurse practitioner's note and agree with the documented findings and plan of care. Lung sounds are positive for diminished breath sounds. The findings and the impression was discussed with the patient. I attest to the documentation by the nurse practitioner. Time with Patient: Less than 30
--- NOTE | 2020-06-06 14:42 | P.DS ---
Providers Date of admission: 06/01/20 17:16 Expected date of discharge: 06/06/20 Attending physician: Marcelo Chaves Consults: 06/01/20 17:23 Consult Physician Stat Consulting Provider: Nic Verdugo Reason/Comments: Covid pneumonia Do you want consulting provider notified?: Yes Primary care physician: Basil [facility] Course: Chief Complaint: Fever History of presenting complaint: This is a pleasant 60-year-old patient follows a Dr. Cunningham at the [facility]. Blood the EMS report: They've informed by the [facility] that that for several days patient has been needing increasing amount of supplemental oxygen. Patient's pulse ox and dropped down to 83% on a nonrebreather 5 L/m. Apparently patient was diagnosed with COVID 19/10 days ago. Started off with fever about 2 days ago. She has a cough. Slightly congested. Appetite is okay. No headaches. Some body aches. Chronic stable medical conditions include hypertension, seizure disorder, GERD, chronic pain, hyperlipidemia. Patient has left hemiparesis. History of brain aneurysm repair. Has no use of the left arm. Some movement of the left leg. Otherwise patient is able to communicate. Admitted with COVID 19 bilateral pneumonia, superimposed suspected gram-negative bacteria pneumonia, acute hypoxic respiratory failure. Patient started on Decadron, vitamin C vitamin D zinc supplement. Patient responded finding. Initially in the ICU. Then moved to the medical floor. Today-laying in bed. Oral intake good. Slight cough. Breathing stable. Cleared by pulmonary. Discussed with the patient. We will give a two-week course of xarelto 2.5 mg because of thrombogenic nature of COVID 19. Discussion and discharge planning more than 35 minutes Consultation: Dr. Quintero and partners from pulmonary Past medical history to include: Left hemiparesis, hypertension, epilepsy, GERD, chronic pain syndrome, hyperlipidemia,, vein aneurysm repair. Left arm flaccid and some weakness in the left leg. Social history: Did smoke in the past. No alcohol. Currently at the [facility]. Family history: Reviewed, noncontributory to presentation Physical examination: VITAL SIGNS: 98, 67, 20, 128/71, 94% on 4 L GENERAL: laying in bed, awake PSYCH: Alert and oriented x3; mood and affect normal. NEUROLOGICAL: [Cranial nerves grossly intact; no facial asymmetry, left-sided we akness Rest of the exam as per pulmonary and nursing INVESTIGATIONS, reviewed in the clinical context: June 06: D-dimer 1.07 CRP 19 pro-calcitonin 0.05 June 03: D-dimer 0.60 CRP 59.4 White count 13 hemoglobin 13.1 platelets 265 decreased lymphocytes at 0.4 d- dimer 1.07 sodium 134 potassium 4 creatinine 0.87 glucose 278 CRP to 42 pro calcitonin 0.59 EKG tracing personally reviewed by me-normal sinus rhythm Chest g-kgm-qmnemmpes infiltrates Computed tomography scan chest angina for PE protocol: No evidence of PE. Groundglass patchy pulmonary interstitial infiltrates. Blood culture positive for coagulase-negative staph-contaminated Assessment and plan: -Bilateral COVID 19 pneumonia diagnosed about 10 days ago. POA. -Possible gram-negative secondary pneumonia-Levaquin course completed -Acute hypoxic respiratory failure from pneumonia-supplement oxygen, 4 L of oxygen. -Chronic left hemiparesis with a flaccid left arm and particularly left lower extremity 2 x 5. -Essential hypertension-continue Zestril -Epilepsy disorder-continue Keppra -GERD stable -Chronic insomnia uses melatonin -Chronic pain syndrome continue on morphine sulfate -Morbid obesity BMI 50.2 -Chronic medical debility patient is pretty much nonambulatory -Contaminated blood culture. DC vancomycin Disposition: F/[place] Patient Condition at Discharge: Stable Plan - Discharge Summary Discharge Rx Participant: No New Discharge Prescriptions: No Action Vitamin B-12 250 Mcg 250 mcg PO DAILY@0800 Acetaminophen Tab [Tylenol] 650 mg PO Q4H PRN PRN Reason: Pain Albuterol Sulfate [Ventolin HFA] 2 puff INHALATION RT-Q4H PRN PRN Reason: Shortness Of Breath Ascorbic Acid [Vitamin C] 1,000 mg PO DAILY@0800 Baclofen 10 mg PO HS@2000 bisacodyL [Dulcolax] 10 mg RECTAL DAILY PRN PRN Reason: Constipation Cholecalciferol [Vitamin D3 (25 Mcg = 1000 Iu)] 50 mcg PO DAILY@0800 DULoxetine HCL [Cymbalta] 20 mg PO DAILY@0800 guaiFENesin [Mucinex] 600 mg PO BID@0800,2100 Ipratropium-Albuterol Nebulize [Duoneb 0.5 mg-3 mg/3 ml Soln] 3 ml INHALATION RT-TID levETIRAcetam [Keppra] 500 mg PO BID@0800,1999 Levofloxacin [Levaquin] 500 mg PO DAILY@1700 lisinopriL [Zestril] 10 mg PO DAILY@0800 Loperamide HCl [Imodium A-D] 2 - 4 mg PO TID PRN MDD 4TABS PRN Reason: Diarrhea Magnesium Hydroxide [Milk of Magnesia Concentrate] 7,200 mg PO DAILY PRN PRN Reason: Constipation Melatonin 3 mg PO HS@2099 Menthol [Biofreeze] 1 applic TOPICAL DAILY PRN PRN Reason: Pain Morphine Sulfate [Morphine Sulfate ER] 15 mg PO BID@0800,1999 Multivitamins, Thera [Multivitamin (formulary)] 1 tab PO DAILY@0800 Na Phos,M-B/Na Phos,Di-Ba [Fleet Adult] 133 ml RECTAL DAILY PRN PRN Reason: Constipation Zinc Sulfate 220 mg PO DAILY@0800 Ondansetron Odt [Zofran ODT] 4 mg PO Q8H PRN PRN Reason: Nausea Discharge Medication List Acetaminophen Tab [Tylenol] 650 mg PO Q4H PRN 06/01/20 [History] Albuterol Sulfate [Ventolin HFA] 2 puff INHALATION RT-Q4H PRN 06/01/20 [History] Ascorbic Acid [Vitamin C] 1,000 mg PO DAILY@0806/01/20 [History] Baclofen 10 mg PO HS@199906/01/20 [History] Cholecalciferol [Vitamin D3 (25 Mcg = 1000 Iu)] 50 mcg PO DAILY@0806/01/20 [History] DULoxetine HCL [Cymbalta] 20 mg PO DAILY@0806/01/20 [History] Ipratropium-Albuterol Nebulize [Duoneb 0.5 mg-3 mg/3 ml Soln] 3 ml INHALATION RT-TID 06/01/20 [History] Levofloxacin [Levaquin] 500 mg PO DAILY@1700 06/01/20 [History] Loperamide HCl [Imodium A-D] 2 - 4 mg PO TID PRN MDD 4TABS 06/01/20 [History] Magnesium Hydroxide [Milk of Magnesia Concentrate] 7,200 mg PO DAILY PRN 06/01/20 [History] Melatonin 3 mg PO HS@209906/01/20 [History] Menthol [Biofreeze] 1 applic TOPICAL DAILY PRN 06/01/20 [History] Morphine Sulfate [Morphine Sulfate ER] 15 mg PO BID@799,199906/01/20 [History] Multivitamins, Thera [Multivitamin (formulary)] 1 tab PO DAILY@0806/01/20 [History] Na Phos,M-B/Na Phos,Di-Ba [Fleet Adult] 133 ml RECTAL DAILY PRN 06/01/20 [History] Ondansetron Odt [Zofran ODT] 4 mg PO Q8H PRN 06/01/20 [History] Vitamin B-12 250 Mcg 250 mcg PO DAILY@79906/01/20 [History] Zinc Sulfate 220 mg PO DAILY@79906/01/20 [History] bisacodyL [Dulcolax] 10 mg RECTAL DAILY PRN 06/01/20 [History] guaiFENesin [Mucinex] 600 mg PO BID@0800,209906/01/20 [History] levETIRAcetam [Keppra] 500 mg PO BID@08,199906/01/20 [History] lisinopriL [Zestril] 10 mg PO DAILY@79906/01/20 [History] Follow up Appointment(s)/Referral(s): Basil Cunningham DO [Primary Care Provider] - 1-2 days Gabrielle Ulrich, [NON-STAFF] - As Needed
[2020-06-06 14:56] VITALS: BP 109/53; PULSE 72; TEMP 98.3
[2020-06-07] MEDS ORDERED: ENOXAPARIN 40 MG/0.4 ML SYRINGE SQ SCH (09:00)
== END 2020-06-06 16:38 | DRG 177 ==
LOC: EC 14:43 → 4SSUR 17:16
PROVIDERS: ADMIT Hospitalist; ATTEND Hospitalist
DX: U07.1 COVID-19 (principal); J12.82 Pneumonia due to coronavirus disease 2019; J96.01 Acute respiratory failure with hypoxia; J15.6 Pneumonia due to other Gram-negative bacteria; Z68.43 Body mass index [BMI] 50.0-59.9, adult; I69.854 Hemiplegia and hemiparesis following other cerebrovascular disease affecting left non-dominant side; E66.01 Morbid (severe) obesity due to excess calories; G40.909 Epilepsy, unspecified, not intractable, without status epilepticus; I10 Essential (primary) hypertension; E78.5 Hyperlipidemia, unspecified; K21.9 Gastro-esophageal reflux disease without esophagitis; G89.4 Chronic pain syndrome; R53.81 Other malaise; F51.04 Psychophysiologic insomnia; Z79.899 Other long term (current) drug therapy; Z87.891 Personal history of nicotine dependence; Z86.14 Personal history of Methicillin resistant Staphylococcus aureus infection; Z90.710 Acquired absence of both cervix and uterus; Z87.42 Personal history of other diseases of the female genital tract; Z98.890 Other specified postprocedural states
CPT/HCPCS: 36415; 71045; 71275; 80053; 82565; 82728; 83605; 83615; 83735; 84145; 85025; 85379; 85610; 85730; 86140; 87040; 93005; 94640; 94760; 96374; 99285

== ENCOUNTER → 2022-10-30 | Outpatient (CLI) | payer MEDICARE, OTHER ==
--- NOTE | 2022-10-30 13:21 | CT ---
EXAMINATION TYPE: CT abdomen pelvis w con CT DLP: 2091.0 mGycm, Automated exposure control for dose reduction was used. DATE OF EXAM: 10/30/2022 1:15 PM COMPARISON: None CLINICAL INDICATION:Female, 62 years old with history of R10.9; abnormal vaginal bleeding and crampin g. pt unable to raise left arm due to prior stroke TECHNIQUE: Axial CT of the abdomen and pelvis. Sagittal and coronal reformats were created on a [employer] workstation. Contrast used:100 mL of Isovue 300 with IV Contrast, (none if empty) Oral contrast used: with Oral Contrast (none if empty) FINDINGS: LOWER CHEST: Unremarkable ABDOMEN LIVER: Diffusely hypoattenuating parenchyma. GALLBLADDER AND BILE DUCTS: Unremarkable. PANCREAS: Unremarkable. SPLEEN: Unremarkable. ADRENAL GLANDS: Unremarkable. KIDNEYS AND URETERS: No evidence of hydronephrosis or renal calculus. The ureters are unremarkable. PELVIS BLADDER: Unremarkable REPRODUCTIVE: Right ovarian 2.2 cm cyst. ABDOMEN & PELVIS STOMACH AND BOWEL: Stomach and duodenum are unremarkable. Scattered diverticula are noted throughout the colon. No evidence of bowel obstruction. PERITONEUM/RETROPERITONEUM: No evidence of pneumoperitoneum or free fluid. VASCULATURE: Mild atherosclerotic calcifications are present throughout the abdominal aorta and its b ranches. No evidence of aortic aneurysm. MUSCULOSKELETAL: No acute osseous abnormalities. Mild disc degeneration changes are present throughou t the thoracolumbar spine. LYMPH NODES: No gross evidence for lymphadenopathy. SOFT TISSUE/ABDOMINAL WALL: Unremarkable IMPRESSION: 1. No evidence for acute abdominal process. No abnormality involving the vagina on this CT exam. Con crayon painter further evaluation with ultrasound. 2. Right ovarian 2.2 cm cyst. Consider further evaluation with transvaginal ultrasound as clinically warranted. 3. Colonic diverticulosis. 4. Hepatic steatosis.
== END | disposition home or self-care (01) ==
LOC: RADCTMAIN 10:57
PROVIDERS: ATTEND Family Medicine
DX: K76.0 Fatty (change of) liver, not elsewhere classified (principal); N83.201 Unspecified ovarian cyst, right side; N95.0 Postmenopausal bleeding; K57.30 Diverticulosis of large intestine without perforation or abscess without bleeding
CPT/HCPCS: 74177; Q9967

== ENCOUNTER → 2022-11-08 | Outpatient (CLI) | payer MEDICARE, OTHER ==
--- NOTE | 2022-11-08 11:55 | US ---
EXAMINATION TYPE: US transvaginal DATE OF EXAM: 11/08/2022 COMPARISON: CLINICAL INDICATION: Female, 62 years old with history of N95.0 POSTMENOPAUSAL BLEEDING; CT showed ri ght ovary cyst. PMB. TECHNIQUE: Transvaginal (TV). Date of LMP: COB SAWYER, EXAM MEASUREMENTS: Uterus: 5.2 x 3.9 x 2.7 cm Endometrial Stripe: 1.6 cm Right Ovary: 3.3 x 2.8 x 2.8 cm 1. Uterus: Retroverted Heterogenous. Small in size. 2. Endometrium: Thickened and heterogenous. 3. Right Ovary: Cystic lesion = 2.9 x 2.3 x 2.6 cm 4. Left Ovary: Obscured by overlying bowel gas 5. Bilateral Adnexa: wnl 6. Posterior cul-de-sac: no free fluid IMPRESSION: 1. Right ovarian cyst. Follow-up exam in 6 weeks can reevaluate this finding.
== END | disposition home or self-care (01) ==
LOC: RADUSWWP 10:25
PROVIDERS: ATTEND Family Medicine
DX: N83.201 Unspecified ovarian cyst, right side (principal); R10.9 Unspecified abdominal pain; N95.0 Postmenopausal bleeding
CPT/HCPCS: 76830

== ENCOUNTER → 2024-11-19 | Outpatient (CLI) | payer MEDICARE, OTHER | END | disposition home or self-care (01) | LOC: RADMAMWWP 15:34 | PROVIDERS: ATTEND Family Medicine | DX: Z53.9 Procedure and treatment not carried out, unspecified reason (principal) ==

== ENCOUNTER 2024-11-23 09:59 | Emergency (ER) | payer MEDICARE, OTHER ==
[2024-11-23 10:05] VITALS: RESP 16
[2024-11-23] MEDS: AMOXIC-POT CLAV 875-125MG 1 EACH TAB PO STA (10:28)
--- NOTE | 2024-11-23 10:29 | ED ---
ENT HPI - General Chief complaint: Dental/Oral Stated complaint: Dental Issue Time Seen by Provider: 11/23/24 10:16 Source: patient, RN notes reviewed Mode of arrival: EMS Limitations: no limitations - History of Present Illness MD complaint: tooth pain Onset/Timin -: days(s) 1 - Damaged Severity scale (1-10): 1 Consistency: constant Context- Dental: poor dental care Associated Symptoms: gum swelling, toothache - Related Data Home Medications Medication Instructions Recorded Confirmed Acetaminophen Tab [Tylenol] 650 mg PO Q4H PRN 06/01/20 06/01/20 Albuterol Sulfate [Ventolin HFA] 2 puff INHALATION RT-Q4H PRN 06/01/20 06/01/20 Ascorbic Acid [Vitamin C] 1,000 mg PO DAILY@0806/01/20 06/01/20 Baclofen 10 mg PO HS@199906/01/20 06/01/20 Cholecalciferol [Vitamin D3 (25 50 mcg PO DAILY@79906/01/20 06/01/20 Mcg = 1000 Iu)] DULoxetine HCL [Cymbalta] 20 mg PO DAILY@00 06/01/20 06/01/20 Ipratropium-Albuterol Nebulize 3 ml INHALATION RT-TID 06/01/20 06/01/20 [Duoneb 0.5 mg-3 mg/3 ml Soln] Loperamide HCl [Imodium A-D] 2 - 4 mg PO TID PRN MDD 4TABS 06/01/20 06/01/20 Magnesium Hydroxide [Milk of 7,200 mg PO DAILY PRN 06/01/20 06/01/20 Magnesia Concentrate] Melatonin 3 mg PO HS@209906/01/20 06/01/20 Multivitamins, Thera [Multivitamin 1 tab PO DAILY@0800 06/01/20 06/01/20 (formulary)] Na Phos,M-B/Na Phos,Di-Ba [Fleet 133 ml RECTAL DAILY PRN 06/01/20 06/01/20 Adult] Ondansetron Odt [Zofran ODT] 4 mg PO Q8H PRN 06/01/20 06/01/20 Vitamin B-12 250 Mcg 250 mcg PO DAILY@0800 06/01/20 06/01/20 Zinc Sulfate 220 mg PO DAILY@0800 06/01/20 06/01/20 bisacodyL [Dulcolax] 10 mg RECTAL DAILY PRN 06/01/20 06/01/20 guaiFENesin [Mucinex] 600 mg PO BID@0800,209906/01/20 06/01/20 levETIRAcetam [Keppra] 500 mg PO BID@0800,199906/01/20 06/01/20 lisinopriL [Zestril] 10 mg PO DAILY@0800 06/01/20 06/01/20 Previous Rx's Medication Instructions Recorded Morphine Sulfate [Morphine Sulfate 15 mg PO BID@0800,1999 #6 tab 06/06/20 ER] Rivaroxaban [Xarelto] 2.5 mg PO HS #21 tablet 06/06/20 Amoxic-Pot Clav 875-125Mg 1 tab PO Q12HR #20 tab 11/23/24 [Augmentin 875-125] Allergies Allergy/AdvReac Type Severity Reaction Status Date / Time No Known Allergies Allergy Verified 06/01/20 17:36 Review of Systems ROS Statement: Those systems with pertinent positive or pertinent negative responses have been documented in the HPI. ROS Other: All systems not noted in ROS Statement are negative. 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 Date of last positivie culture/infection: 06/18/16 MDRO Source:: SCALP Past Surgical History: Hysterectomy Additional Past Anesthesia/Blood Transfusion Reaction / Comment(s): too sleepy Past Psychological History: No Psychological Hx Reported Smoking Status: Former smoker Past Alcohol Use History: None Reported, Unable to Obtain Past Drug Use History: None Reported General Exam Limitations: no limitations General appearance: alert, in no apparent distress Head exam: Present: atraumatic, normocephalic, other (Positive right maxillary/cheek mild facial edema and overlying erythema with some point tenderness) Eye exam: Present: normal appearance, PERRL, EOMI. Absent: scleral icterus, conjunctival injection, periorbital swelling ENT exam: Present: mucous membranes moist, other (Generally poor dentition with right upper second molar tenderness with tongue depressor palpation and erythematous/edematous surrounding gingiva with no obvious periapical abscess. Negative elevation of floor of mouth, drooling, oropharyngeal edema, trismus) Neck exam: Present: normal inspection. Absent: tenderness, meningismus, lymph adenopathy Respiratory exam: Present: normal lung sounds bilaterally. Absent: respiratory distress, wheezes, rales, rhonchi, stridor Cardiovascular Exam: Present: regular rate, normal rhythm, normal heart sounds. Absent: systolic murmur, diastolic murmur, rubs, gallop, clicks GI/Abdominal exam: Present: soft, normal bowel sounds. Absent: distended, tenderness, guarding, rebound, rigid Extremities exam: Present: normal inspection, full ROM, normal capillary refill. Absent: tenderness, pedal edema, joint swelling, calf tenderness Back exam: Present: normal inspection Neurological exam: Present: alert, oriented X3, CN II-XII intact Psychiatric exam: Present: normal affect, normal mood Skin exam: Present: warm, dry, intact, normal color. Absent: rash Course Vital Signs 11/23/24 10:02 Temperature 98.5 F Pulse Rate 84 Respiratory 16 Rate Blood Pressure 136/66 O2 Sat by Pulse 95 Oximetry Medical Decision Making - Medical Decision Making Was pt. sent in by a medical professional or institution ([facility], [facility], urgent care, hospital, or halfway...) When possible be specific @ -[place] Did you speak to anyone other than the patient for history (EMS, parent, family, police, friend...)? What history was obtained from this source @ -[No] Did you review nursing and triage notes (agree or disagree)? Why? @ -[I reviewed and agree with nursing and triage notes] Were old charts reviewed (outside hosp., previous admission, EMS record, old EKG, old radiological studies, urgent care reports/EKG's, halfway records)? Report findings @ -[No old charts were reviewed] Differential Diagnosis (chest pain, altered mental status, abdominal pain women, abdominal pain men, vaginal bleeding, weakness, fever, dyspnea, syncope, headache, dizziness, GI bleed, back pain, seizure, CVA, palpatations, mental health, musculoskeletal)? @ -Dental abscess, dental faina, gingivitis, ANUG, Leonid's angina, sinusitis, peritonsillar abscess EKG interpreted by me (3pts min.). @ -Not done X-rays interpreted by me (1pt min.). @ -[None done] CT interpreted by me (1pt min.). @ -[None done] U/S interpreted by me (1pt. min.). @ -[None done] What testing was considered but not performed or refused? (CT, X-rays, U/S, labs)? Why? @ -[None] What meds were considered but not given or refused? Why? @ -[None] Did you discuss the management of the patient with other professionals (pr ofessionals i.e. , PA, [facility], lab, RT, psych nurse, psych social worker, foil stamp operator, teacher, parcel post officer, rn field case manager)? Give summary @ -[No] Was smoking cessation discussed for >3mins.? @ -[No] Was critical care preformed (if so, how long)? @ -[No] Were there social determinants of health that impacted care today? How? (Homelessness, low income, unemployed, alcoholism, drug addiction, transportation, low edu. Level, literacy, decrease access to med. care, detention, rehab)? @ -[No] Was there de-escalation of care discussed even if they declined (Discuss DNR or withdrawal of care, Hospice)? DNR status @ -[No] What co-morbidities impacted this encounter? (DM, HTN, Smoking, COPD, CAD, Cancer, CVA, ARF, Chemo, Hep., AIDS, mental health diagnosis, sleep apnea, morbid obesity)? @ -[None] Was patient admitted / discharged? Hospital course, mention meds given and route, prescriptions, significant lab abnormalities, going to OR and other pertinent info. @ -[hospital course] Undiagnosed new problem with uncertain prognosis? @ -[No] Drug Therapy requiring intensive monitoring for toxicity (Heparin, Nitro, Insulin, Cardizem)? @ -[No] Were any procedures done? @ -[No] Diagnosis/symptom? @ -Dental abscess Acute, or Chronic, or Acute on Chronic? @ -Acute Uncomplicated (without systemic symptoms) or Complicated (systemic symptoms)? @ -Uncomplicated Side effects of treatment? @ -[No] Exacerbation, Progression, or Severe Exacerbation? @ -[No] Poses a threat to life or bodily function? How? (Chest pain, USA, CT, pneumonia, PE, COPD, DKA, ARF, appy, cholecystitis, CVA, Diverticulitis, Homicidal, Suicid al, threat to staff... and all critical care pts) @ -[No] Disposition Clinical Impression: Dental abscess Disposition: HOME SELF-CARE Condition: Good Instructions (If sedation given, give patient instructions): Dental Abscess (ED) Additional Instructions: Tylenol every 4-6 hours as needed for pain. Swish with warm salt water as needed. Follow-up with dentist for definitive management and treatment of dental issues. Prescriptions: Amoxic-Pot Clav 875-125Mg [Augmentin 875-125] 1 tab PO Q12HR #20 tab Is patient prescribed a controlled substance at d/c from ED?: No Referrals: Basil Cunningham DO [Primary Care Provider] - 1-2 days Anastasia Zuniga DMD [STAFF PHYSICIAN] - 1-2 days Time of Disposition: 10:28
[2024-11-23 11:47] VITALS: BP 130/70; PULSE 80; TEMP 98.4
== END 2024-11-23 11:59 | disposition home or self-care (01) ==
LOC: EC 09:59
DX: K04.7 Periapical abscess without sinus (principal); Z87.891 Personal history of nicotine dependence
CPT/HCPCS: 99283